=== PATIENT | female | born 1940 | race Caucasian/White ===

== ENCOUNTER → 2019-03-25 14:41 | Outpatient (CLI) | payer MEDICARE, OTHER, SELFPAY ==
--- NOTE | 2019-03-25 14:50 | RAD_ITS ---
STUDY: X-RAY - LUMBAR SPINE REASON FOR EXAM: Female, 78 years old. Low back pain TECHNIQUE: 5 view(s) of the lumbar spine were obtained. COMPARISON: None FINDINGS: Normal lumbar lordosis. There is no substantial scoliosis. There is a normal alignment of the vertebrae. There is generalized demineralization of the vertebral bodies. There are old compression deformities of the T12, L4, and L5 vertebral bodies. There is narrowing of the L5-S1 disc space. The soft tissue structures are unremarkable. RAD/L/S Spine Min 4 Views IMPRESSION: Old compression deformities of T12, L4, and L5. Narrowing of the L5-S1 disc space. There is no evidence of acute fracture, spondylolysis, or spondylolisthesis. Electronically Signed: Jeffrey Briones MD at 18:40 EDT , Service support ,
== END ==
PROVIDERS: Family Provider Family Medicine; PCP Family Medicine; Referring Provider Family Medicine; Visit Provider Family Medicine
DX: M54.9 Dorsalgia, unspecified (principal)
CPT/HCPCS: 72110

== ENCOUNTER → 2019-03-29 13:38 | Outpatient (CLI) | payer MEDICARE, OTHER, SELFPAY ==
--- NOTE | 2019-03-29 13:49 | BD_ITS ---
STUDY: DUAL ENERGY X-RAY ABSORPTIOMETRY / DXA REASON FOR EXAM: Female, 78 years old. The patient is postmenopausal. Loss of height. TECHNIQUE: Bone Mineral Density (BMD) measurements of lumbar spine and bilateral hips were obtained. COMPARISON: None. FINDINGS: Lumbar Spine (L1-L4): g/cm2 (0.927) / T-score (-2.3) / Z-score (-0.5) Findings are suggestive of osteopenia with a high fracture risk. Left Femur Total: g/cm2 (0.768) / T-score (-1.9) / Z-score (-0.1) Left Femoral Neck: g/cm2 (0.681) / T-score (-2.6) / Z-score (-0.6) Right Femur Total: g/cm2 (0.729) / T-score (-2.2) / Z-score (-0.4) Right Femoral Neck: g/cm2 (0.652) / T-score (-2.8) / Z-score (-0.8) BD/Dexa Bone Density Study IMPRESSION: The patient is considered osteoporotic as outlined below according to World Jorge A Organization (WHO) criteria with a high fracture risk. Reference Information: The T-score is the number of standard deviations above or below the standard which is normal for young adults at their peak bone mineral density. The World Health Organization (WHO) interprets the T-scores as follows: Above -1 Normal bone density Between -1 and -2.5 Osteopenia Equal to / or below -2.5 Osteoporosis As a practical clinical guideline, osteopenia may be graded as follows: Mild -1 through -1.5 Moderate -1.6 through -2.0 Severe -2.1 through -2.4 The Z-score is the number of standard deviations above or below age-matched controls. A Z-score of less than -1.5 would be considered abnormal. References: 1. NIH Osteoporosis and Related Bone Diseases http://www.osteo.org 2. International Society for Clinical Densitometry http://www.iscd.org 3. National Osteoporosis Foundation http://www.nof.org Electronically Signed: Dillan Patricia, at 8:54 EDT , Service support ,
== END ==
PROVIDERS: Family Provider Family Medicine; PCP Family Medicine; Referring Provider Family Medicine; Visit Provider Family Medicine
DX: M81.0 Age-related osteoporosis without current pathological fracture (principal)
CPT/HCPCS: 77080

== ENCOUNTER 2019-04-26 14:00 | Outpatient (RCR) | payer MEDICARE, OTHER, SELFPAY ==
--- NOTE | 2019-04-06 12:11 | HP.PTEVAL_ITS ---
Patient's Visit Information REBECCA HINTON is a 78 year old F referred to Physical Therapy by Azalea Rueda MD with a diagnosis of DORSALGIA. Date of Evaluation: 04/06/19 Physical Therapist: Santosh Tineo PT, Cert MDT, OCS - Visit Plan Frequency: 2x /Week Duration: 4 Weeks Plan: H/O OSTEOPENIA/OSTEOPOROSIS. PT INTERVETIONS DLS ABD/BACK,HIP STRENGTHENING,POSTURAL EX'S - Subjective Findings: This 78 y/o female presnets to physical therapy with lumbar pain.Patient has h/o osteopenia and osteoprosis which patient recently had bone density test. Also,had x-rays showed compression deformitys T12 ,L4 AND L5. Jomar ventura developed lumbar pain 6wks ago carryng a bed ,next day had back. Initally seen chiropractor . Patient see DR and recommended. Aggravating liftig,bending, standing ,extended sitting. Aleviating factors walking,rest. Patient denies parathesia/tingling. Bowel/bladder -. Coughing/sneezing -. Patient pain affects houisework and ADL'S. Patient pain affects QOL. VOCATION: retired. SOCIAL: - Pain Bilateral Back Pain Intensity (Out of 10): 5 Pain Intensity Range: 10 Comment: worst - Objective POSTURE: mild foward posture. GAIT:ambulates with fild foward posture reciprocal pattern. NEURO:reflexes L3-4,L4-5,L5-S1 2/3,denies parathesai/tingling. PALAPTION: unrmarkable. MMT:quads/hams 4/5,hip flexion 4- /5 ,ankle 4/5. LUMBAR ROM: flexion min loss,extension min/mod loss ,side glides min loss. SYMMRIES: align - Special Tests L/S Slump test left side: Negative L/S Slump test right side: Negative L/S Left Straight Leg Raise: Negative L/S Right Straight Leg Raise: Negative - Goals Goal 1:: Independant with HEP Goal Time Frame: 4-6 Weeks Goal 2:: Decrease lumbar pain by 50% or > to improve function. Goal Time Frame: 4-6 Weeks Goal 3:: Pateint to improve back owestry score by 5 points > to improve QOL. Goal Time Frame: 4-6 Weeks Goal 4:: Pateint improve posture for ADL'S Goal Time Frame: 4-6 Weeks Goal 5:: Patient improve lumbar ROM for function of recovery. Goal Time Frame: 4-6 Weeks - Rehabilitation Potential Physical Therapy Diagnosis: This patient has symmtrical lumbar pain with h/o osteopenia /osteoprosis with pain L-S region. impairs function and ADLS with decrease core strength. Rehabilitation Potential: Good - Anticipated Interventions Patient/Client Instruction: Educate patient on: Condition, Plan of Care For the Purpose of:: To decrease pain, To increase ROM, To improve muscle performance and motor function, To improve ability to perform ADL's, To increase tolerance to activity/condition/position, To decrease level of supervision to perform tasks, To improve gait and locomotor functions, To improve health of tissue, To decrease soft tissue restriction, To increase flexibility/ROM, To improve ability to perform tasks related to life management Therapeutic Exercise to Include: Strength training, Postural training, Flexibilty training, Active ROM, Dynamic Lumbar Stabilization For the Purpose of:: To decrease pain, To increase ROM, To improve muscle performance and motor function, To improve ability to perform ADL's, To increase tolerance to activity/condition/position, To improve ability of physical actions for home/community/work/leisure, To improve health of tissue, To decrease soft tissue restriction, To increase flexibility/ROM, To improve ability to perform tasks related to life management TENS: Yes IF ES: Yes Cryotherapy (ice pack, ice massage): Yes Thermo therapy (hot pack): Yes Ultrasound (thermal/non thermal): Yes For the Purpose of:: To decrease pain, To increase ROM, To improve health of tissue, To decrease soft tissue restriction Thank you for the opportunity to evaluate your patient. For Medicare and Medicare HMO plans, please review the plan of care and approve it. It will need to be FAXED BACK to us at [phone] for Medicare purposes. For Medicare only, by signing this I certify the plan of care. Please let me know if there are questions or concerns regarding this plan of care. Physician Signature: Date:
--- NOTE | 2019-06-09 15:35 | HP.PTDCNRP_ITS ---
HP - Discharge Summary (1) - Patient Information REBECCA HINTON was seen in my office for initial evaluation on 04/06/19. The following Plan of Care was established for this patient: Initial Frequency: 2x /Week Initial Duration: 4 Weeks - Anticipated Interventions Patient/Client Instruction: Educate patient on: Condition, Plan of Care For the Purpose of:: To decrease pain, To increase ROM, To improve muscle pe rformance and motor function, To improve ability to perform ADL's, To increase tolerance to activity/condition/position, To decrease level of supervision to perform tasks, To improve gait and locomotor functions, To improve health of tissue, To decrease soft tissue restriction, To increase flexibility/ROM, To improve ability to perform tasks related to life management Therapeutic Exercise to Include: Strength training, Postural training, Flexibilty training, Active ROM, Dynamic Lumbar Stabilization For the Purpose of:: To decrease pain, To increase ROM, To improve muscle performance and motor function, To improve ability to perform ADL's, To increase tolerance to activity/condition/position, To improve ability of physical actions for home/community/work/leisure, To improve health of tissue, To decrease soft tissue restriction, To increase flexibility/ROM, To improve ability to perform tasks related to life management TENS: Yes IF ES: Yes Cryotherapy (ice pack, ice massage): Yes Thermo therapy (hot pack): Yes Ultrasound (thermal/non thermal): Yes For the Purpose of:: To decrease pain, To increase ROM, To improve health of tissue, To decrease soft tissue restriction This patient was last seen in our office 04/26/19. Pertinent comments regarding their Physical therapy will appear below: Patient seen for physical therapy for dorasalgia with tx focusing on DLS ,POSTURAL EX'S and HEP. Thus is d/c . At this point I will be discontinuing this patient from physical therapy. I would be happy to see this patient again in the future if found appropriate by the physician. Thank you! Santosh Tineo, PT, Cert MDT, OCS
== END 2019-04-26 19:00 | disposition home or self-care (01) ==
LOC: PT 14:00
PROVIDERS: Family Provider Family Medicine; PCP Family Medicine; Referring Provider Family Medicine; Visit Provider Family Medicine
DX: M54.9 Dorsalgia, unspecified (principal)
CPT/HCPCS: 97110; 97161

== ENCOUNTER → 2020-12-04 08:54 | Outpatient (CLI) | payer MEDICARE, OTHER, SELFPAY ==
[2020-12-04 09:57] LABS: Absolute Lymphocyte Count 2.18 X10^3/uL (0.83-4.51); Absolute Neutrophil Count 2.9 X10^3/uL (2.0-7.7); Basophil# 0.07 X10^3/uL; Basophil% 1.2 % (0-1); Eosinophil# 0.14 X10^3/uL; Eosinophils% 2.4 % (0-5); Hematocrit 47.8 % (37-47); Lymphocyte # 2.18 X10^3/ul (0.83-4.51); Lymphocyte % 37.7 % (19-41); Mean Corp Hgb Conc 31.4 g/dL (32-36); Mean Corpuscular Hgb 30.2 pg (27.0-32.0); Mean Corpuscular Volume 96.2 fL (81-99); Monocyte# 0.51 X10^3/uL; Monocyte% 8.8 % (0-10); NRBC Flagged by Analyzer 0 % (0-5); Neutrophil # 2.87 X10^3/uL (2.7-7.7); Neutrophil % 49.7 % (47-70); Platelet Count 291 K/mm3 (150-450); RBC Distribution Width CV 13.2 % (11.6-14.6); RBC Distribution Width SD 47.4 fl (35.1-43.9); Red Blood Count 4.97 M/mm3 (4.2-5.4); White Blood Count 5.8 K/mm3 (4.4-11.0)
[2020-12-04 10:25] LABS: ALB/GLOB Ratio 0.9 RATIO (0.9-2.4); AST(SGOT) 16 U/L (15-37); Alanine Aminotransfer ALT/SGPT 27 U/L (13-56); Albumin, Serum 3.5 g/dL (3.2-5.0); Alkaline Phosphatase 62 U/L (45-117); Anion Gap 4 (5-15); BUN 17 mg/dL (7-18); BUN/Creat Ratio 25.2 RATIO (10-20); Calcium,Total 8.7 mg/dL (8.5-10.1); Chloride 106 mmol/L (98-107); Cholesterol 187 mg/dL (200); Creatinine, Serum 0.67 mg/dL (0.55-1.02); EST Glomerular Filtration Rate 90 mL/min (>60); Est Glom Filt Rate - Afr Amer 109 mL/min (>60); Globulin 3.7 g/dL (2.2-4.2); Glucose 91 mg/dL (74-106); High Density Lipoprotein 68 mg/dL; Potassium 4.3 mmol/L (3.5-5.1); Protein, Total 7.2 g/dL (6.4-8.2); Sodium Level 139 mmol/L (136-145); Triglycerides 99 mg/dL; Very Low Density Lipoprotein 20 mg/dL (5-40)
[2020-12-04 10:31] LABS: Vitamin D,25 Hydroxy 31.4 ng/mL
== END ==
PROVIDERS: PCP Family Medicine; Referring Provider Family Medicine; Visit Provider Family Medicine
DX: Z00.01 Encounter for general adult medical examination with abnormal findings (principal); M81.0 Age-related osteoporosis without current pathological fracture
CPT/HCPCS: 36415; 80053; 80061; 82306; 85025

== ENCOUNTER → 2021-05-03 14:32 | Outpatient (CLI) | payer MEDICARE, OTHER, SELFPAY ==
[2021-05-03 15:55] LABS: Anion Gap 6 (5-15); BUN 18 mg/dL (7-18); Calcium,Total 9.7 mg/dL (8.5-10.1); Chloride 107 mmol/L (98-107); Creatinine, Serum 0.72 mg/dL (0.55-1.02); EST Glomerular Filtration Rate 83 mL/min (>60); Est Glom Filt Rate - Afr Amer 100 mL/min (>60); Glucose 109 mg/dL (74-106); Potassium 4.1 mmol/L (3.5-5.1); Sodium Level 141 mmol/L (136-145)
[2021-05-03 16:06] LABS: Vitamin D,25 Hydroxy 32.1 ng/mL
[2021-05-06 17:07] LABS: Endomysial Antibody IgA Negative (Negative)
[2021-05-06 18:06] LABS: Deamidated Gliadin IgA 4 units (0-19); Deamidated Gliadin IgG 2 units (0-19); Immunoglobulin A 319 mg/dL (64-422); t-Transglutaminase IgA <2 U/mL (0-3)
== END ==
PROVIDERS: Internal Medicine Gastroenterology; PCP Family Medicine; Referring Provider Internal Medicine Endocrinology, Diabetes & Metabolism; Visit Provider Internal Medicine Endocrinology, Diabetes & Metabolism
DX: E55.9 Vitamin D deficiency, unspecified (principal); M81.0 Age-related osteoporosis without current pathological fracture
CPT/HCPCS: 36415; 80048; 82306; 82784; 83516; 86255

== ENCOUNTER → 2021-05-17 12:49 | Outpatient (CLI) | payer MEDICARE, OTHER, SELFPAY ==
[2021-05-17 12:53] VITALS: BP 108/53; PULSE 93; RESP 16; TEMP 36.4; O2SAT 98; BMI 27.4
[2021-05-17] MEDS: 0.9% NaCl Peripheral Flush Adult/Peds IV (13:05)
[2021-05-17] MEDS: Zoledronic Acid 5 MG 100 ML 300 MG IV (13:09)
[2021-05-17] MEDS: 0.9% NaCl IVPB Med Flush (250 mL) 15 ML IV (13:09)
[2021-05-17 13:39] VITALS: BP 112/66; PULSE 78; RESP 16; TEMP 36.5; O2SAT 100
== END ==
PROVIDERS: PCP Family Medicine; Referring Provider Internal Medicine Endocrinology, Diabetes & Metabolism; Visit Provider Internal Medicine Endocrinology, Diabetes & Metabolism
DX: M81.0 Age-related osteoporosis without current pathological fracture (principal)
CPT/HCPCS: 96365; J7050; A4216; J3489

== ENCOUNTER → 2022-03-20 | Outpatient (CLI) | payer MEDICARE, SELFPAY ==
--- NOTE | 2022-03-20 12:41 | CT_ITS ---
STUDY: CT SCAN OF LOWER EXTREMITY LEFT REASON FOR EXAM: Female, 81 years old. PAIN RADIATION DOSAGE (If Supplied By Facility): CTDIvol = ( 20.10 ) mGy, DLP = ( 1135.33 ) mGycm. Individualized dose optimization techniques were used for this CT.? TECHNIQUE: Multiple axial tomographic images of the left lower extremity were obtained. Coronal and sagittal reconstruction was obtained as well.MALIA protocol. COMPARISON: None. FINDINGS: Imaging of the left hip joint was obtained. There is a mild degree of the joint space narrowing. No evidence of fracture or dislocation. Imaging of the knee joint was obtained. Marked degree of joint space narrowing with degenerative spur formation along the lateral compartment of the knee joint. Mild degree of joint space narrowing and degenerative spur formation along the medial compartment. Large joint effusion. Imaging of the ankle joint was obtained. There is evidence of calcaneal spurs. CT/Extremity Lower without Contra IMPRESSION: Moderate degree of joint space narrowing of the lateral compartment of knee joint as well as mild degree of joint space narrowing involving the medial compartment of the knee joint. Large joint effusion. Electronically Signed: Dillan Patricia MD at 13:05 EDT ,
== END | disposition home or self-care (01) ==
LOC: CT 12:38
PROVIDERS: PCP Family Medicine; Referring Provider Physician Assistant; Visit Provider Physician Assistant
DX: M17.12 Unilateral primary osteoarthritis, left knee (principal); M21.062 Valgus deformity, not elsewhere classified, left knee
CPT/HCPCS: 73700

== ENCOUNTER 2022-05-05 14:20 | Observation (INO) | payer MEDICARE, SELFPAY ==
--- NOTE | 2022-04-21 14:41 | EKG12_ITS ---
Test Reason : PRE OP Blood Pressure : / mmHG Vent. Rate : 086 BPM Atrial Rate : 086 BPM P-R Int : 140 ms QRS Dur : 066 ms QT Int : 356 ms P-R-T Axes : -04 -32 010 degrees QTc Int : 426 ms Sinus rhythm with Premature atrial complexes Left axis deviation Low voltage QRS Inferior infarct , age undetermined , cannot be excluded Poor R wave progression Abnormal ECG Confirmed by SHRUTHI MURRIETA, TIAGO ([id number]), sound editor ERNA ALMARAZ ([id number]) on 04/22/2022 9:22:33 AM Referred By: SAM Confirmed By:TIAGO HAWKINS MD
--- NOTE | 2022-04-21 14:42 | RAD_ITS ---
STUDY: X-RAY CHEST REASON FOR EXAM: Female, 81 years old. PRE-OP -- HAS EKG WELL TECHNIQUE: PA and lateral views of the chest. COMPARISON: None. FINDINGS: The lungs are clear and expanded. There is no demonstrated pleural abnormality. Normal size heart. Normal mediastinum and najma. Normal visualized pulmonary arteries. Normal visualized aortic arch and descending thoracic aorta. Normal visualized thoracic spine. Normal visualized ribs, clavicles, and shoulders. There is no demonstrated abnormality of the visualized soft tissue structures of the upper abdomen. RAD/Chest PA and Lateral IMPRESSION: Normal x-ray examination of the chest. Electronically Signed: Vasiliy Mendoza MD at 17:20 EDT ,
[2022-04-21 15:33] LABS: Absolute Lymphocyte Count 2.57 X10^3/uL (0.83-4.51); Absolute Neutrophil Count 4.7 X10^3/uL (2.0-7.7); Basophil# 0.05 X10^3/uL; Basophil% 0.6 % (0-1); Eosinophil# 0.11 X10^3/uL; Eosinophils% 1.3 % (0-5); Hematocrit 48.9 % (37-47); Hemoglobin 15.9 g/dL (12.0-15.0); Lymphocyte # 2.57 X10^3/ul (0.83-4.51); Lymphocyte % 31.1 % (19-41); Mean Corp Hgb Conc 32.5 g/dL (32-36); Mean Corpuscular Hgb 30.3 pg (27.0-32.0); Mean Corpuscular Volume 93.1 fL (81-99); Mean Platelet Vol. 9.2 fl (6.2-12.0); Monocyte# 0.85 X10^3/uL; Monocyte% 10.3 % (0-10); NRBC Flagged by Analyzer 0 % (0-5); Neutrophil # 4.65 X10^3/uL (2.7-7.7); Neutrophil % 56.3 % (47-70); Platelet Count 310 K/mm3 (150-450); RBC Distribution Width CV 13.2 % (11.6-14.6); RBC Distribution Width SD 44.8 fl (35.1-43.9); Red Blood Count 5.25 M/mm3 (4.2-5.4); White Blood Count 8.3 K/mm3 (4.4-11.0)
[2022-04-21 16:26] LABS: Anion Gap 10 (5-15); BUN 15 mg/dL (7-18); BUN/Creat Ratio 20.1 RATIO (10-20); Calcium,Total 9.4 mg/dL (8.5-10.1); Chloride 106 mmol/L (98-107); Creatinine, Serum 0.74 mg/dL (0.55-1.02); EST Glomerular Filtration Rate 80 mL/min (>60); Est Glom Filt Rate - Afr Amer 96 mL/min (>60); Glucose 100 mg/dL (74-106); Potassium 4.6 mmol/L (3.5-5.1); Sodium Level 141 mmol/L (136-145)
--- NOTE | 2022-04-28 12:57 | CASEMGMT ---
RN ALEKSEY Assessment: TC to pt for initial transition planning/care coordination assessment. RN ALEKSEY introduced self and role at [facility], pt voices understanding and consents to assessment. Care providers, pharmacy, and demographics verified/updated. Admitting Dx: Lt Total Knee Robotic PCP:Marybeth Specialists:abisai Dangelo; collin Garcia; Friend, GI Preferred Pharmacy: [facility] Insurance: [employer] [facility] Prescription Benefit: yes LW/HPOA: Pt states she has a LW/DPOA and her DPOA is her son Naeem Bailon. She is aware this is not on file at [facility] and she may bring in on day of surgery to be scanned into her chart. LNOK: Emmy Bailon, dtr; Naeem Bailon, son Living Arrangements: Pt lives alone in a single story house with 2 steps to enter with a grab bar. Pt reports she is I in ADL's and denies concerns at home. Transportation: Pt drives self and denies concerns with transportation. Pt dil will transport pt post surgery. DME/HHC/SNF: Pt has a FWW at home. She currently does not use AD. Pt also has grab bars in the bathroom. Pt has had HHC in the past but is unsure of the name of the agency, it was not when she lived in [place]. Pt denies SNF stays. Pt states no concerns with going home at time of dc. Pt has outpt therapy set up at [facility] for 05/01. Pt states her dil will assist her after surgery and her friend who is a retired RN will be staying with her. Pt states no further concerns/needs. CM to follow. Advised pt to ask CM if any further question/concerns/needs arise, voices understanding. Pt Goal: Home with outpt therapy already set up Plan: Home with outpt therapy set up
[2022-05-05] VITALS (12 sets, daily range): BP systolic 96–144; BP diastolic 58–82; PULSE 72–106; RESP 16–18; TEMP 36–36.6; O2SAT 93–100; BMI 26.6; BMI 25.6
[2022-05-05] MEDS: Lactated Ringers 1,000 ML 999 ML IV ×2 (08:09→12:20)
[2022-05-05] MEDS: Magnesium 1 GM over 15 mins IV (08:10)
[2022-05-05] MEDS: Celecoxib 200 MG Capsule 400 MG PO (08:11)
[2022-05-05] MEDS: Gabapentin 600 MG Tablet PO (08:11)
[2022-05-05 09:00] LABS: Bedside Glucose 88 mg/dL (74-106)
[2022-05-05] MEDS: Lactated Ringers 1,000 ML 125 ML IV ×2 (09:55→14:27)
[2022-05-05] MEDS: Lactated Ringers 1,000 ML 75 ML IV (09:55)
--- NOTE | 2022-05-05 09:55 | KNEE_PTH ---
PATIENT: REBECCA HINTON LOC: [facility]3 U#:[id number] AGE/SX: 81/F ROOM: MS305 RE05/05/[address]: Dr. Rojelio Dangelo DO : 1940 BED: 1 DIS: 05/06/2022 SPEC #: [id number] RECD: 05/05/22 14:44 STATUS: RADHA TAVAREZRicarda #: [id number] NELA: 05/05/22 09:[address]: Rojelio Dangelo DEPT: SURGICAL PATHOLOGY RECD BY: Di Laws ENTERED: 05/06/22 08:52 SP TYPE: TOTAL KNEE OTHR DR: Dr. Azalea Rueda MD Tissues: Knee, NOS Procedures: Decalcification bone/plaque Surgery Specimen Level IV HEADER OPERATION: ERAS, total knee replacement robotic arm assist PRE-OP DIAGNOSIS: Osteoarthritis grade IV, left knee TISSUE SUBMITTED: Left femoral and tibial bone MICROSCOPIC DIAGNOSIS Left femoral and tibial bone, total knee replacement/resection: Pieces of bone with degenerative osteoarthritic changes. Fibroadipose tissue, fibroconnective tissue and reactive synovial tissue. FERNY:aileen 05/09/2022 MICROSCOPIC DESCRIPTION Slides are reviewed. GROSS DESCRIPTION Received is one container designated left femoral and tibial bone. The specimen consists of multiple fragments of rea-yellow bone measuring in aggregate 12 x 8 x 3 cm. Also in the specimen container are multiple fragments of yellow-white soft tissue measuring in aggregate 9 x 7 x 3 cm. A number of bony fragments contain articular surfaces consistent with tibial plateau and femoral condyle and displaying prominent osteophyte formation, eburnation, and bone erosion. [employer] School Program Teacher sections are submitted in two cassettes as follows: 1 - soft tissue, 2 - bone after decalcification. / FERNY:aileen 05/06/2022 TC:5 [facility]: [id number], [id number]
[2022-05-05] MEDS: Cefazolin 2 GM in 0.9% Normal Saline 100 ML IV (10:22)
[2022-05-05] MEDS: TXA 1000mg in NS100 100ml (IVPB at Incision) 660 MG IV (10:41)
[2022-05-05] MEDS: TXA 1000mg in NS100 100ml (IVPB at Closure) 660 MG IV (11:46)
--- NOTE | 2022-05-05 11:48 | OP.PCM_ITS ---
Report of Operation Date of Procedure: 05/05/22 Pre-Operative Diagnosis: OA left knee Post-Operative Diagnosis: same Surgery/Procedure Performed:: Left TKR Description of Surgical Findings:: Report of Operation Date of Procedure: 05/05/2022 Preoperative Diagnosis: [ left ] knee primary osteoarthritis Postoperative Diagnosis: [left ] knee primary osteoarthritis Operation: Robotic Assisted Knee Total Arthroplasty, [left ] knee Surgeon: Dr Rojelio Dangelo DO Shop Superintendent: Denita Fountain PA-C Anesthesia: general Anesthesiologist: Kiran Dial M.D. Findings: Stable knee with good patella tracking Specimen(s): Bony cuts Complications: No intraoperative complications Estimated Blood Loss: 30 cc IV Fluids: 1000 cc crystalloid Implants Used: 1. [employer] press-fit CR size 3 femur 2. [employer] size 4 tibia 3. 32 mm patella 4. 11 mm CS polyethylene Brief History Operative Indications: [ (81 y/o female) ] with history of [ left ] knee osteoarthrosis with radiographic findings with loss of joint space, osteophyte formation and subchondral sclerosis. Failed conservative measures as mentioned in the H&P. Discussion of total knee arthroplasty as well as risk and benefits were discussed with the patient including but not limited to blood loss, DVTs, PEs, neurovascular damage, general risk of anesthesia including loss of life, and stiffness or instability were also discussed with the patient. Patient demonstrated understanding and was able to sign informed consent. Procedure: On the date of procedure, patient's [ left ] lower extremity was marked in the preoperative area. The patient was then taken back to the operating room where that patient was placed on the table in the supine position. All bony prominences were identified and well-padded. Anesthesia assumed control of the C-spine and airway throughout the remainder of the procedure. A tourniquet was placed on the [left ] upper thigh and the leg was prepped in a sterile fashion. The surgeon then scrubbed at this time. Upon reentering the room, the [left ] lower extremity was draped in a standard orthopedic fashion. A timeout was then called and everyone agreed upon the side, the site, the procedure to be performed, patient's identity and antibiotics given. Esmarch bandage was used to exsanguinate the extremity and the tourniquet was placed up to 250 mmHg with the knee in flexion. A midline skin incision was made and a sharp dissection was taken down through skin, subcutaneous tissue and fat. The standard medial parapatellar incision was made and the patella was subluxed laterally. An appropriate deep MCL release was done and the fat pad was resected. Our attention was then directed to the patella. The patella was everted and a flat resection was made. The knee was then flexed up and 2 femoral pins were placed inside the incision and 2 tibial pins were placed outside the incision in the medial tibia bicortically. Once this was completed, the 2 checkpoints in the femur and tibia were placed. Knee was then flexed up and the bony landmarks were registered. Once the was completed, the knee taken through range of motion and manually stressed allowing us to plan for an appropriate tibial cut. The robotic arm was brought into the field sterilely and checkpoint and saw were registered. Based on the patient's deformity, the tibial cut was made in [ 2 degrees valgus ]. At this time, the tensioner was then placed in the joint and ligament tension was checked at 90 degrees and full extension. Based on the patient's ligamentous tension, appropriate adjustments were made to the operative plan and ligament releases were done. Once we were happy with our operative plan with balanced flexion and extension gaps, our attention was directed to the femur. The robot was brought into the field sterilely and registered. Posterior condylar cuts, anterior chamfer cuts and anterior cuts were appropriately made for a [size 3 ] femur. When these were completed, the saws were switched out in the distal femoral and posterior chamfer cuts were made. Protecting the soft tissue throughout this time. A [ size 4 ] base plate was selected. The knee was flexed to 90 degrees and soft tissues and posterior osteophytes were removed from the joint. 40 cc of the periarticular injection was injected into the posterior medial corner of the joint. The appropriate trials were then placed on the femur and tibia. A trial polyethylene was trialed to ensure proper balancing and stability of the knee. The appropriate tibial internal rotation was then marked with a bovie. Our attention was then directed to the patella. The lug holes were drilled and the patella trial was placed. Patellar tracking was checked and deemed appropriate. Once we were happy, lug holes were drilled for the femur and trial components were removed. The tibia was subluxed and pinned into place and the keel was punched and drilled appropriately. Final components were verified and opened. The wound was copiously irrigated with normal saline. The components were impacted into place with the tibia, femur and finally the patella. The trial poly component was placed and the knee was placed in full extension. The tracking, alignment and balance were verified and a [ 11 mm CS ] polyethylene component was placed. Once the final components were placed an Irrisept lavage was performed and the wound was copiously irrigated with normal saline solution and the periarticular injection was given. the wound was closed in a layer-hernandez fashion using #1 vicryl interrupted sutures for the arthrotomy, 2-0 interrupted vicryl suture for the subcuticular layer and desmond for final skin closure. A sterile compressive dressing was then placed. The patient was then awakened from anesthesia, transferred to the rgause and transferred to the PACU for recovery. My physician assistant associate full professor was a vital part of this case. He was important in appropriate retraction during the case, and protection of soft tissues during bony cuts. His intimate knowledge of the case and my steps aided in safe and expedient completion of the procedure as well as appropriate position of the leg during the case. He was also vital in assisting with closure under my direct supervision. Due to the complexity of this case, robotic arm was used to assist in the surgery to improve accuracy and clinical outcomes. Post-op Plan: DVT ppx; ASA 81 mg BID, thigh high compression stockings Follow up: in office in 2 weeks for wound check PT: to start POD #0 at hospital, outpatient PT should be arranged. Preoperative antibiotic: Ancef 2 grams IV Rojelio Dangelo DO Surgeon: Rojelio Dangelo medical doctor md: Denita Fountain Type of Anesthesia: General Anesthesiologist: Kiran Dial Estimated Blood Loss (mL): 30 cc Fluids Replaced: 1000 cc crystalloid Admit VTE Documentation VTE Present on Admission: No VTE Mechan Device Prophylaxis: SCD's and Thigh High BEVERLY Hose VTE Pharm Prophylaxis ordered?: Yes
--- NOTE | 2022-05-05 13:00 | RAD_ITS ---
STUDY: X-RAY - LEFT KNEE REASON FOR EXAM: Female, 81 years old. Post op -- AP and Lateral xray of operative knee in PACU TECHNIQUE: 2 view(s) of the knee. COMPARISON: None. FINDINGS: Normal visualized distal femur. Normal visualized proximal tibia and fibula. Normal proximal tibiofibular articulation. The patient is status post total knee replacement. There is good alignment. Postoperative soft tissue changes. RAD/Knee 1 or 2 Views IMPRESSION: Status post total knee replacement. There is good alignment. Postoperative soft tissue changes. Electronically Signed: Dillan Patricia MD at 13:38 EDT ,
[2022-05-05] MEDS: Acetaminophen 500 MG Tablet 1000 MG PO ×2 (14:27→21:53)
--- NOTE | 2022-05-05 17:21 | NURSING ---
Pt had a emesis after eating dinner. States she feels better. Denies wanting antiemetic. Pt provided saltines and gingerale. States she will call nurse if she has any further nausea.
[2022-05-05] MEDS: Aspirin 81 MG TAB.CHEW PO (17:56)
[2022-05-05] MEDS: Cefazolin 1 GM/50 ML BAG IV (17:56)
[2022-05-05] MEDS: Senna/Docusate Sodium 1 Tablet 2 TABLET PO (21:53)
[2022-05-05] MEDS: Lactated Ringers 1,000 ML 15 ML IV (21:55)
[2022-05-06] MEDS: 0.9% NaCl Peripheral Flush Adult/Peds IV (02:11)
[2022-05-06] MEDS: Cefazolin 1 GM/50 ML BAG IV (02:11)
[2022-05-06 04:59] LABS: Hemoglobin 13.1 g/dL (12.0-15.0); Mean Corp Hgb Conc 32.8 g/dL (32-36); Mean Corpuscular Hgb 30.3 pg (27.0-32.0); Mean Corpuscular Volume 92.6 fL (81-99); Mean Platelet Vol. 8.9 fl (6.2-12.0); Platelet Count 327 K/mm3 (150-450); RBC Distribution Width CV 13.4 % (11.6-14.6); Red Blood Count 4.32 M/mm3 (4.2-5.4); White Blood Count 10.9 K/mm3 (4.4-11.0)
[2022-05-06 05:33] LABS: Anion Gap 7 (5-15); BUN 7 mg/dL (7-18); BUN/Creat Ratio 11.1 RATIO (10-20); Calcium,Total 8.2 mg/dL (8.5-10.1); Chloride 107 mmol/L (98-107); Creatinine, Serum 0.63 mg/dL (0.55-1.02); EST Glomerular Filtration Rate 97 mL/min (>60); Est Glom Filt Rate - Afr Amer 117 mL/min (>60); Estimated Creatinine Clearance 36.08 ml/min; Glucose 89 mg/dL (74-106); Potassium 3.7 mmol/L (3.5-5.1); Sodium Level 141 mmol/L (136-145)
[2022-05-06] MEDS: Acetaminophen 500 MG Tablet 1000 MG PO ×2 (06:01→13:55)
--- NOTE | 2022-05-06 08:10 | PCM.PN.ORT ---
Subjective Subjective Patient is s/p left sided total knee arthroplasty with Dr. Dangelo. Patient resting comfortably in bed. Rates pain 0/ 10 at rest. With movement 5 /10. States taking Tylenol and oxycodone as needed and ice help to relieve pain. Patient has been up with therapy. Walking with the assit of a walker. Afebrile, no chest pain, shortness of breath, negative calf pain/ erythema, and no other signs of DVT. Objective Data Objective Data Vital Signs: Vital Signs Temp Pulse Resp BP Pulse Ox O2 Del Method O2 Flow Rate 97.5 F L 89 18 118/69 100 Room Air 7 05/05/22 23:19 05/05/22 23:19 05/05/22 23:19 05/05/22 23:19 05/05/22 23:19 05/05/22 23:19 05/05/22 13:54 Oxygen Flow Rate (L/min) 7 Oxygen Delivery Method Room Air Weight: 63.503 kg Body Mass Index (BMI) 25.6 Intake & Output: Intake and Output for Last 24 Hours 05/04/22 05/05/22 05/06/22 23:59 23:59 23:59 Intake Total 5498 / 5498 50 / 50 Output Total 300 / 1575 2125 / 2125 Balance 5198 / 3923 -207 / -2074 Lab / Micro Data Result Diagrams: 05/06/22 04:10 05/06/22 04:10 Labs: Laboratory Results - last 24 hr 05/05/22 08:28: POC Glucose 88 05/06/22 04:10: WBC 10.9, RBC 4.32, Hgb 13.1, Hct 40.0, MCV 92.6, MCH 30.3, MCHC 32.8, RDW Std Deviation 46.0 H, RDW Coeff of Eleonora 13.4, Plt Count 327, MPV 8.9 05/06/22 04:10: Sodium 141, Potassium 3.7, Chloride 107, Carbon Dioxide 27.0, Anion Gap 7, BUN 7, Creatinine 0.63, Estim Creat Clear Calc 36.08, Est GFR (MDRD) Af Amer 117, Est GFR (MDRD) Non-Af 97, BUN/Creatinine Ratio 11.1, Glucose 89, Calcium 8.2 L Micro: Microbiology 04/21/22 14:32 Swab (Method) Nasal Screen MRSA/MSSA - Final Radiography Diagnostic Testing: Radiology Impression Knee X-Ray 05/05/22 13:00 IMPRESSION: Status post total knee replacement. There is good alignment. Postoperative soft tissue changes. Electronically Signed: Dillan Patricia MD at 13:38 EDT , Physical Exam Narrative Patient resting comfortably in bed No signs of acute distress Satting well on room air Left lower extremity: Limb is warm to touch, Sensation intact throughout entire lower extremity, including saphenous, sural, superficial and deep peroneal, and tibial distribution. DP/PT pulses bounding. Dorsi and plantar flexion strength 5/5 Dressing : distal pin sites dressing saturated. changed. and stable now. midline incision, there is an area in the middle portion with drainage. stable. no new dressing changes. Calf nontender to palpation, no erythema, no edema. Negative Homans Assessment & Plan Assessment/Plan (1) Status post total left knee replacement: PLAN: Status post left total knee arthroplasty 05/05/2022 Dr. Dangelo 1. Will continue PT today. Weightbearing as tolerated 2. plan for discharge this afternoon following PT 3. Patient will follow up for post op appointment in 2 weeks. As previously scheduled 4. Patient has outpatient PT appointment in 2 days 5. WBC 10.9 no acute reactive leukocytosis 6. H/H 13.1/40.0: no post operavtive anemia 7. DVT prophylaxis : Aspirin 1 mg twice daily x4 weeks 8. Pain control: patient instructed to take tylenol 500mg 2 tablets TID. and oxycodone 1-2 tablets every 4-6 hours only as needed for pain control.
[2022-05-06 08:16] VITALS: O2SAT 97
[2022-05-06 08:21] VITALS: O2SAT 94
[2022-05-06] MEDS: Aspirin 81 MG TAB.CHEW PO (08:58)
[2022-05-06] MEDS: Multivitamins,Therapeutic Tablet 1 TABLET PO (08:58)
[2022-05-06] MEDS: Calcium Carb/Vitamin D 1 TABLET Tablet 2 TABLET PO (08:59)
--- NOTE | 2022-05-06 09:01 | CASEMGMT ---
RN CM in to pt room, pt sitting up in chair. Pt has outpt therapy [facility] for 05/08 at [facility] (corrected from prior note). Pt has a retired RN who is also staying with patient. Pt denies any homegoing needs and is ready for dc.
[2022-05-06 09:11] VITALS: BP 113/58; PULSE 92; RESP 16; TEMP 36.8; O2SAT 100
--- NOTE | 2022-05-06 10:52 | PHA.DC.MC ---
Pharmacy Service has performed discharge medication reconciliation and counseling for this patient. 1. ACETAMINOPHEN 1000MG PO Q8 2. ASPIRIN 81MG PO BIDCM 3. OXYCODONE 2.5MG PO Q4H PRN PAIN 4. SENNA/DOCUSATE 2T PO BID The patient's discharge medication list was reviewed for discrepancies and discrepancies were resolved. Home Medications biotin 2,500 mcg capsule 2,500 mcg PO DAILY 12/25/20 calcium citrate-vitamin D3 [Citracal + D Maximum] 2 tab PO DAILY 12/25/20 multivitamin 1 tab PO DAILY 12/25/20 ibuprofen 600 mg tablet 600 mg PO Q8H PRN Pain 04/04/21 Lactobacillus acidophilus 10 billion cell capsule (Probiotic) 10,000 mmu cells PO BID 04/22/22 turmeric 400 mg capsule 400 mg PO BID 04/22/22 acetaminophen 500 mg tablet 1,000 mg PO Q8 #90 tabs 05/06/22 aspirin 81 mg chewable tablet 81 mg PO BIDCM #60 tabs 05/06/22 oxycodone 5 mg tablet 2.5 mg PO Q4H PRN PRN Pain Score 4-10 7 days #60 tabs 05/06/22 sennosides 8.6 mg-docusate sodium 50 mg tablet (Stool Softener-Stimulant Laxative) 2 tab PO BID #20 tabs 05/06/22 The patient was counseled on the following discharge medications and changes in medications for homegoing were reviewed. The Reason for Use, instructions for use, and potential side effects were reviewed for all new medications. The patient's questions regarding all of their medications were answered. The patient was able to verbally demonstrate an understanding of their discharge medications. Patient counseled by pharmacy order entry technicianSebastien.
[2022-05-06 12:59] VITALS: O2SAT 98
[2022-05-06 13:53] VITALS: BP 111/64; PULSE 93; RESP 16; TEMP 37.2; O2SAT 100
== END 2022-05-06 14:55 | disposition home or self-care (01) ==
LOC: SDC 14:42 → MS3 14:42
PROVIDERS: Anesthesiology; Admitting Provider Orthopaedic Surgery; PCP Family Medicine; Referring Provider Orthopaedic Surgery; Visit Provider Orthopaedic Surgery
PROC: 0SRD0JZ Replacement of Left Knee Joint with Synthetic Substitute, Open Approach (ICD-10-PCS; CPT 27447; principal; 2022-05-05 09:25)
DX: M17.12 Unilateral primary osteoarthritis, left knee (principal); Z87.891 Personal history of nicotine dependence; K21.9 Gastro-esophageal reflux disease without esophagitis; Z79.899 Other long term (current) drug therapy; K58.1 Irritable bowel syndrome with constipation
CPT/HCPCS: 27447; S2900; 01402; 64447; 36415; 71046; 73560; 80048; 82962; 83735; 85025; 85027; 87081; 88305; 88311; 93005; 96361; 96365; 96366; 97110; 97162; 97166; 97530; 97535; 99218; C1776; J7120; A4216; G0378; J2405; J3475

== ENCOUNTER 2022-06-25 13:30 | Outpatient (RCR) | payer MEDICARE, SELFPAY ==
--- NOTE | 2022-05-08 13:55 | HP.PTEVAL ---
Patient's Visit Information REBECCA HINTON is a 81 year old F referred to Physical Therapy by Dr. Rojelio Dangelo DO with a diagnosis of L TKA 05/05/22. Date of Evaluation: 05/08/22 Physical Therapist: Grey Rolle, PT, ATC - Visit Plan Frequency: 2-3x /Week Duration: 4-6 Weeks Plan: L knee PROM/mobs, stretching and strengthening, balance and proprio, core strengthening, gait training, stair negotiation, nustep, and HEP - Subjective DOS: 05/05/22. Pt reports she had a L TKA performed at that time. Pt notes she had a chronic Hx of L knee pain prior to this surgery. Pt reports she is still in a lot of pain at this time. Pt reports she had her R knee replaced several years ago and doesnt remember being in this much pain. Pt has 2 steps to enter her house that she must negotiate one at a time. Pt also reports she is having sleep difficutly at this time secondary to pain. Pt denies tingling or numbness at this time. 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 Pt also reports she likes to ski, and would like to be able to do that again one day. 3/10 pain while sitting here at rest, 9/10 pain at worst (sit to stand transfers). Pt lives by herself. - Pain L Knee Pain Intensity (Out of 10): 3 Pain Intensity Range: 9 - Objective Neuro: B LE sensation is WNL to light touch. B achilles reflex= 1/3. Girth at joint line: L knee 43 cm, R knee 34 cm. MMT: L knee ext= 9, flex= 8; R knee flex= 32, ext= 35 #F. ROM: L knee 0-12-80, R knee 0-4-125. Gait: Pt is able to ambulate with use of WW 340' until needing a rest - Balance/Special Test Scores Lower Extremity Functional Score: 27 - Goals Goal 1:: Decrease L knee pain x 50% to aid with sleep Goal Time Frame: 4-6 Weeks Goal 2:: Increase L knee ROM x 30 degrees to aid with restoring a more normalized gait pattern Goal Time Frame: 4-6 Weeks Goal 3:: Increase L knee strength x 15 #F to aid with stair negotiation Goal Time Frame: 4-6 Weeks Goal 4:: Pt will be able to ambulate greater than 1000 feet to aid with community ambulation Goal Time Frame: 4-6 Weeks Goal 5:: I with HEP Goal Time Frame: 4-6 Weeks - Rehabilitation Potential Physical Therapy Diagnosis: Pt has L knee pain, weakness, and limited ROM secondary to L TKA Rehabilitation Potential: Good - Anticipated Interventions Patient/Client Instruction: Educate patient on: Condition, Plan of Care For the Purpose of:: To improve self management Therapeutic Exercise to Include: Strength training, Endurance training, Balance training, Flexibilty training, Gait and locomotor training, Passive ROM, Active ROM, Dynamic Lumbar Stabilization For the Purpose of:: To decrease pain, To increase ROM, To improve muscle performance and motor function Cryotherapy (ice pack, ice massage): Yes For the Purpose of:: To decrease pain Thank you for the opportunity to evaluate your patient. For Medicare and Medicare HMO plans, please review the plan of care and approve it. It will need to be FAXED BACK to us at [phone] for Medicare purposes. For Medicare only, by signing this I certify the plan of care. Please let me know if there are questions or concerns regarding this plan of care. Physician Signature: Date:
--- NOTE | 2022-06-02 12:10 | HP.PTREVAL_ITS ---
Dr. Rojelio Dangelo, DO, It has been my pleasure to treat REBECCA HINTON over the last 8 visits for L TKA 05/05/22. Please see the progress note below for an update on the physical therapy plan of care! Subjective: I walked a lot yesterday and was a little sore last night Objective/Function: L knee pain ranges from 2-9/10. L knee ROM: 0-7-115 degrees. L knee MMT: flex= 21, ext= 27 #F. Pt is able to ambulate 680 feet with no AD. Pt is progressing well toward Rx goals Plan Plan: L knee PROM/mobs, stretching and strengthening, balance and proprio, core strengthening, gait training, stair negotiation, nustep, and HEP Balance/Gait/Functional tests - Balance/Special Test Scores Lower Extremity Functional Score: 38 Goals Goal 1:: Decrease L knee pain x 50% to aid with sleep Goal Time Frame: 4-6 Weeks Goal Progress: Progressing Goal 2:: Increase L knee ROM x 30 degrees to aid with restoring a more nor malized gait pattern Goal Time Frame: 4-6 Weeks Goal Progress: Goal Met Goal 3:: Increase L knee strength x 15 #F to aid with stair negotiation Goal Time Frame: 4-6 Weeks Goal Progress: Progressing Goal 4:: Pt will be able to ambulate greater than 1000 feet to aid with community ambulation Goal Time Frame: 4-6 Weeks Goal Progress: Progressing Goal 5:: I with HEP Goal Time Frame: 4-6 Weeks Goal Progress: Progressing Anticipated Interventions Patient/Client Instruction: Educate patient on: Condition, Plan of Care For the Purpose of:: To improve self management Therapeutic Exercise to Include: Strength training, Endurance training, Balance training, Flexibilty training, Gait and locomotor training, Passive ROM, Active ROM, Dynamic Lumbar Stabilization For the Purpose of:: To decrease pain, To increase ROM, To improve muscle performance and motor function Cryotherapy (ice pack, ice massage): Yes For the Purpose of:: To decrease pain Please do not hesitate to contact me at [phone] by phone or if you have questions or concerns regarding this new plan of care! Sincerely, Grey Rolle, PT, ATC
--- NOTE | 2022-06-25 14:32 | HP.PTDCSUM ---
It has been my pleasure to treat REBECCA HINTON referred by Dr. Rojelio Dangelo DO, with the diagnosis of L TKA 05/05/22 for a total of 13 visit(s). Discharge Date: Please see the following information for a summary of their discharge status. Subjective: I dont have pain today L Knee Pain Intensity (Out of 10): 0 % Improvement: 90 Objective/Function: L knee pain 0/10. L knee ROM: 0-121 degrees. L knee MMT: flex= 32, ext= 36 #F. Pt is I with hep and has achieved all Rx goals. Goal 1:: Decrease L knee pain x 50% to aid with sleep Goal Progress: Goal Met Goal 2:: Increase L knee ROM x 30 degrees to aid with restoring a more normalized gait pattern Goal Progress: Goal Met Goal 3:: Increase L knee strength x 15 #F to aid with stair negotiation Goal Progress: Goal Met Goal 4:: Pt will be able to ambulate greater than 1000 feet to aid with community ambulation Goal Progress: Goal Met Goal 5:: I with HEP Goal Progress: Progressing Plan: Discharge to gym routine If there are questions or concerns regarding this patient's physical therapy, please feel free to call me at [phone]. Thank you for the referral of this patient. Sincerely, Grey Rolle, PT, ATC Balance/Gait/Functional tests - Balance/Special Test Scores Lower Extremity Functional Score: 64
== END 2022-06-25 14:40 | disposition home or self-care (01) ==
LOC: PT 13:30
PROVIDERS: PCP Family Medicine; Referring Provider Orthopaedic Surgery; Visit Provider Orthopaedic Surgery
DX: M17.12 Unilateral primary osteoarthritis, left knee (principal); M21.062 Valgus deformity, not elsewhere classified, left knee
CPT/HCPCS: 97110; 97140; 97161; 97164; 97530

== ENCOUNTER → 2022-08-18 | Outpatient (CLI) | payer MEDICARE, SELFPAY ==
[2022-08-18 12:17] LABS: ALB/GLOB Ratio 0.9 RATIO (0.9-2.4); AST(SGOT) 15 U/L (15-37); Alanine Aminotransfer ALT/SGPT 24 U/L (13-56); Albumin, Serum 3.9 g/dL (3.2-5.0); Alkaline Phosphatase 67 U/L (45-117); Anion Gap 8 (5-15); BUN 19 mg/dL (7-18); BUN/Creat Ratio 22.6 RATIO (10-20); Calcium,Total 9.6 mg/dL (8.5-10.1); Chloride 104 mmol/L (98-107); Creatinine, Serum 0.84 mg/dL (0.55-1.02); EST Glomerular Filtration Rate 69 mL/min (>60); Est Glom Filt Rate - Afr Amer 84 mL/min (>60); Globulin 4.3 g/dL (2.2-4.2); Glucose 105 mg/dL (74-106); Potassium 4.4 mmol/L (3.5-5.1); Protein, Total 8.2 g/dL (6.4-8.2); Sodium Level 140 mmol/L (136-145)
[2022-08-18 12:48] LABS: Vitamin D,25 Hydroxy 41.4 ng/mL
== END | disposition home or self-care (01) ==
LOC: PAVLAB 11:48
PROVIDERS: PCP Family Medicine; Referring Provider Internal Medicine Endocrinology, Diabetes & Metabolism; Visit Provider Internal Medicine Endocrinology, Diabetes & Metabolism
DX: M81.0 Age-related osteoporosis without current pathological fracture (principal); E55.9 Vitamin D deficiency, unspecified
CPT/HCPCS: 36415; 80053; 82306

== ENCOUNTER 2022-08-22 12:44 | Outpatient (CLI) | payer MEDICARE, SELFPAY ==
[2022-08-22 12:53] VITALS: BP 114/69; PULSE 103; RESP 16; TEMP 36.1; O2SAT 97; BMI 24.7
[2022-08-22] MEDS: Zoledronic Acid 5 MG 100 ML 300 MG IV (13:06)
[2022-08-22] MEDS: 0.9% NaCl Peripheral Flush Adult/Peds IV (13:06)
[2022-08-22 13:30] VITALS: BP 110/57; PULSE 103; RESP 16; O2SAT 100
== END 2022-08-22 23:59 | disposition home or self-care (01) ==
LOC: MEDOUTP 12:45
PROVIDERS: PCP Family Medicine; Referring Provider Internal Medicine Endocrinology, Diabetes & Metabolism; Visit Provider Internal Medicine Endocrinology, Diabetes & Metabolism
DX: M81.0 Age-related osteoporosis without current pathological fracture (principal)
CPT/HCPCS: 96372; A4216; J3489

== ENCOUNTER 2023-01-19 12:04 | Inpatient (IN) | payer MEDICARE, SELFPAY ==
[2023-01-19] VITALS (11 sets, daily range): BP systolic 82–104; BP diastolic 59–79; PULSE 99–120; RESP 16–18; TEMP 36.4–37.2; O2SAT 95–100; BMI 24.9; BMI 27.1
--- NOTE | 2023-01-19 12:31 | EKG12_ITS ---
Test Reason : CP Blood Pressure : / mmHG Vent. Rate : 109 BPM Atrial Rate : 109 BPM P-R Int : 142 ms QRS Dur : 082 ms QT Int : 346 ms P-R-T Axes : 012 -31 066 degrees QTc Int : 465 ms Sinus tachycardia Left axis deviation Abnormal ECG Confirmed by RAGHAV MURRIETA, KECIA ([id number]), story editor ERNA ALMARAZ ([id number]) on 01/21/2023 12:18:54 PM Referred By: Confirmed By:KECIA AVILEZ MD
--- NOTE | 2023-01-19 12:32 | CT_ITS ---
STUDY: CTA CHEST REASON FOR EXAM: Female, 82 years old. Chest pain, SOB, Tachycardia RADIATION DOSAGE (If Supplied By Facility): CTDIvol = ( 9.12 ) mGy, DLP = ( 264.68 ) mGycm TECHNIQUE: The examination was performed with the intravenous administration of IV 100mL Isovue-370. Post-processing of the angiographic images was performed, with multiplanar reformation and 3D reconstruction. Individualized dose optimization techniques were used for this CT. COMPARISON: None. FINDINGS: Normal enhancement of the main pulmonary artery and right and left pulmonary arteries. Normal enhancement of the bilateral peripheral pulmonary arteries. There is no demonstrated pulmonary embolism. There is atherosclerotic calcification of the aortic arch with tortuosity. There is no demonstrated aortic dissection. Normal heart and pericardium. No coronary artery calcification is seen. Normal mediastinum. Normal hilar regions. Normal visualized trachea and bronchi. The lungs are well expanded. Minimal degree of bibasilar atelectasis. Normal pleura. Normal chest wall structures. There are degenerative changes of thoracic spine. Normal visualized upper abdomen. CT/CTA Chest W/WO Contrast IMPRESSION: No evidence of palm embolism. Mild degree of increased linear markings at the lung bases suggestive of atelectasis. Electronically Signed: Dillan Patricia MD at 14:16 EDT ,
--- NOTE | 2023-01-19 12:33 | ED.VIS.CHEST ---
HPI History of Present Illness Chief Complaint: Chest Pain Narrative Narrative: 82-year-old female who denies significant past medical history, states that she takes no medications currently, presents with 3 days of chest pain and pressure on the top of her chest into her neck. She states it is worse when she bends over but better when she lies down. She denies any fevers or chills. No cough, no nausea or vomiting or shortness of breath. Of note, she states that she was on a mission trip for 2 weeks in [place] and returned home, and had body aches all over. She thought her chest pain would resolve, but it has not. She denies any leg swelling, no true exacerbating or alleviating factors. [facility] Medical History Alcohol use Arthritis Back problem Bone fracture Cancer Former smoker Gastric reflux History of IBS History of stress test Injury of back Irritable bowel syndrome with constipation Migraine headache Mitral valve prolapse Osteopenia Osteoporosis Post-menopausal Skin cancer Small intestinal bacterial overgrowth Wears glasses Wears hearing aid Home Medications biotin 2,500 mcg capsule 2,500 mcg PO DAILY 12/25/20 [History Last Taken 05/04/22] calcium citrate-vitamin D3 [Citracal + D Maximum] 2 tab PO DAILY 12/25/20 [History Last Taken 05/04/22] multivitamin 1 tab PO DAILY 12/25/20 [History Last Taken 05/04/22] ibuprofen 600 mg tablet 600 mg PO Q8H PRN Pain 04/04/21 [History Last Taken 05/04/22] Lactobacillus acidophilus 10 billion cell capsule (Probiotic) 10,000 mmu cells PO BID 04/22/22 [History Last Taken 05/04/22] acetaminophen 500 mg tablet 1,000 mg PO Q8 #90 tabs 05/06/22 [Rx Last Taken Unknown] zoledronic acid 5 mg/100 mL in mannitol 5 %-water intravenous piggybck 1 ea .Route .once\ #100 mL 07/21/22 [Rx Last Taken Unknown] Allergy/AdvReac Type Severity Reaction Status Date / Time acetaminophen Allergy Mild unknown Verified 01/19/23 12:04 [From Darvocet-N] propoxyphene Allergy Mild unknown Verified 01/19/23 12:04 [From Darvocet-N] Family History Father Cancer Hypercholesterolemia Mother Diabetes Heart disease Osteoporosis Surgical History History of bunionectomy History of knee replacement Hx of section Hx of colonoscopy Status post surgical removal of malignant neoplasm of skin Social History Smoking Status: Former smoker alcohol intake: current alcohol intake frequency: 0-2 drinks per day Alcohol type: wine substance use type: does not use what type of physical activity do you participate in: yoga frequency: 1-2 times per week ROS ROS ED ROS Narrative Constitutional: No fever, no chills. HEENT: No sore throat. No neck pain. No loss of vision. No rhinorrhea. Cardiovascular: Upper chest pain. No palpitations. No pedal edema. Respiratory: No cough, no shortness of breath. Abdominal: No abdominal pain. No nausea. No vomiting. Genitourinary: No dysuria. No hematuria. Musculoskeletal: No myalgias. No arthralgias. Neurologic: No headaches. No dizziness. No lightheadedness. Skin: No rash. No change in color. Psychiatric: No depression. No anxiety. EXAM Physical Exam Narrative Exam Narrative: Afebrile. Vital signs noted. HEENT: Normocephalic. Atraumatic. PERRL, EOMI. Neck soft and supple. No point tenderness or step off. Cardiovascular: Positive tachycardia no murmurs, rubs, or gallops appreciated. Respiratory: No tachypnea. Lungs clear to auscultation bilaterally. Gastrointestinal: Abdomen soft, nontender, with normoactive bowel sounds. No rebound or guarding. Neurological: Awake. Alert. Nonfocal, nonlateralizing. Skin: No rash. Normal color. No pallor. Musculoskeletal: No pedal edema. Full range of motion extremities. Const Vital Signs: 01/19/23 12:05 01/19/23 12:45 01/19/23 13:12 Temperature 97.6 F L Temperature Source Temporal Pulse Rate 120 H 104 H Respiratory Rate 18 Blood Pressure 104/79 82/59 L Blood Pressure Mean 87 66 Pulse Ox 100 97 96 Oxygen Delivery Method Room Air Room Air 01/19/23 14:12 Temperature Temperature Source Pulse Rate 106 H Respiratory Rate Blood Pressure Blood Pressure Mean Pulse Ox 95 Oxygen Delivery Method Heart Score History: Slightly/Non-Suspicious ECG: Normal Age: >/= 65 years Risk Factors: No Risk Factors Score: 2 MDM MDM MDM Narrative Medical decision making narrative: Comprehensive work-up was pursued. Concern is for ACS versus pulmonary embolism given her tachycardia. She did relate history that she was in atrial fibrillation once, and they looked and she had been admitted previously. She is not currently in atrial fibrillation however. EKG was obtained and interpreted by myself independently as sinus tachycardia at 109 bpm without ectopy or acute ST changes. She will be given aspirin. I will obtain a D-dimer. However, I am concerned tomorrow that she will require a CTA regardless of what this D-dimer shows as she has a risk factor for PE because she may have been immobile on her plane ride home. I reviewed her laboratory work and she has a leukocytosis of 18,000, hemoglobin 14.8, hematocrit 45.5, platelet count 279. Her D-dimer was elevated at 3.02, well beyond the age were related correction. She had a sodium low at 134 with CO2 20, BUN elevated at 21 with creatinine 1.05 consistent with mild dehydration. Glucose up appropriately elevated at 142 with a normal anion gap of 12. Initial high-sensitivity troponin is 25. I interpreted her chest x-ray and see atelectasis at the bases, but no pneumonia or pneumothorax explaining her upper chest pain radiating to her left jaw. I am unsure as to what her leukocytosis may be. While her blood pressure reportedly runs low she had an dip in her systolic blood pressure to 82. She is still mentating. She had received a bolus of normal saline. I will add a lactic acid and a urinalysis cath specimen to look for signs of infection for her leukocytosis and possible sepsis. She was also swabbed for COVID and influenza. With her results pending, patient will be signed out to Dr. Harsha Mckenzie who will review the remaining laboratory work and make final disposition. She may require observation for her leukocytosis and hypotension. Currently, patient is in stable condition. History & Record Review Discussion w/independent historian: Patient and Family Additional record(s) reviewed:: Prior ED visit and Prior labs Lab Data Attestation: I reviewed the patient's lab results. Labs: Laboratory Results - last 24 hr 01/19/23 01/19/23 01/19/23 12:40 12:40 12:40 WBC 18.0 H RBC 4.79 Hgb 14.8 Hct 45.5 MCV 95.0 MCH 30.9 MCHC 32.5 RDW Std Deviation 46.1 H RDW Coeff of Eleonora 13.1 Plt Count 279 MPV 9.1 Immature Gran % (Auto) 0.900 Neut % (Auto) 85.5 H Lymph % (Auto) 6.1 L [place] % (Auto) 6.8 Eos % (Auto) 0.4 Baso % (Auto) 0.3 Absolute Neuts (auto) 15.3 H Absolute Lymphs (auto) 1.09 Nucleated RBC % 0 D-Dimer Quant (PE/DVT) 3.02 H* Sodium 134 L Potassium 3.6 Chloride 102 Carbon Dioxide 20.0 L Anion Gap 12 BUN 21 H Creatinine 1.05 H Estim Creat Clear Calc 35.35 Est GFR (MDRD) Af Amer 65 Est GFR (MDRD) Non-Af 54 L BUN/Creatinine Ratio 20.0 Glucose 142 H Calcium 9.2 Total Bilirubin 1.00 AST 67 H ALT 75 H Alkaline Phosphatase 95 Troponin I High Sens 25 Total Protein 7.9 Albumin 2.7 L Globulin 5.2 H Albumin/Globulin Ratio 0.5 L Radiography Diagnostic Testing: Clinical Impression(s) from Imaging Studies Chest CTA 01/19/23 12:32 IMPRESSION: No evidence of palm embolism. Mild degree of increased linear markings at the lung bases suggestive of atelectasis. Electronically Signed: Dillan Patricia MD at 14:16 EDT , Discharge Plan Triage Chief Complaint: Chest Pain ED Provider: Bryson Rogers Dx/Rx/DC Orders Clinical Impression: Leukocytosis, Hyponatremia, Chest pain Prescriptions: No Action multivitamin Tablet 1 tab PO DAILY calcium citrate-vitamin D3 [Citracal + D Maximum] 2 tab PO DAILY biotin 2,500 mcg capsule 2,500 mcg PO DAILY ibuprofen 600 mg tablet 600 mg PO Q8H PRN (Reason: Pain) zoledronic immi-jqlitdgd-uirnc 5 mg/100 mL piggyback 1 ea .Route .once\ Qty: 100 0RF Rx Instructions: infuse over 20 minutes Probiotic 10 billion cell Capsule 10,000 mmu cells PO BID acetaminophen 500 mg Tablet 1,000 mg PO Q8 Qty: 90 0RF Primary Care Provider: Azalea Rueda Referrals: Azalea Rueda MD [Primary Care Provider] -
[2023-01-19 12:52] LABS: Absolute Lymphocyte Count 1.09 X10^3/uL (0.83-4.51); Absolute Neutrophil Count 15.3 X10^3/uL (2.0-7.7); Basophil# 0.06 X10^3/uL; Basophil% 0.3 % (0-1); Eosinophil# 0.08 X10^3/uL; Eosinophils% 0.4 % (0-5); Hematocrit 45.5 % (37-47); Hemoglobin 14.8 g/dL (12.0-15.0); Lymphocyte # 1.09 X10^3/ul (0.83-4.51); Lymphocyte % 6.1 % (19-41); Mean Corp Hgb Conc 32.5 g/dL (32-36); Mean Corpuscular Hgb 30.9 pg (27.0-32.0); Mean Platelet Vol. 9.1 fl (6.2-12.0); Monocyte# 1.23 X10^3/uL; Monocyte% 6.8 % (0-10); NRBC Flagged by Analyzer 0 % (0-5); Neutrophil # 15.34 X10^3/uL (2.7-7.7); Neutrophil % 85.5 % (47-70); Platelet Count 279 K/mm3 (150-450); RBC Distribution Width CV 13.1 % (11.6-14.6); RBC Distribution Width SD 46.1 fl (35.1-43.9); Red Blood Count 4.79 M/mm3 (4.2-5.4)
[2023-01-19] MEDS: 0.9% Normal Saline 1,000 ML 1000 ML IV (12:58)
[2023-01-19] MEDS: Aspirin 81 MG TAB.CHEW 324 MG PO (12:58)
[2023-01-19 13:09] LABS: D-Dimer Quantitative (DVT/PE) 3.02 FEU/ug/m (0.27-0.49)
[2023-01-19 13:27] LABS: ALB/GLOB Ratio 0.5 RATIO (0.9-2.4); AST(SGOT) 67 U/L (15-37); Alanine Aminotransfer ALT/SGPT 75 U/L (13-56); Albumin, Serum 2.7 g/dL (3.2-5.0); Alkaline Phosphatase 95 U/L (45-117); Anion Gap 12 (5-15); BUN 21 mg/dL (7-18); Calcium,Total 9.2 mg/dL (8.5-10.1); Chloride 102 mmol/L (98-107); Creatinine, Serum 1.05 mg/dL (0.55-1.02); EST Glomerular Filtration Rate 54 mL/min (>60); Est Glom Filt Rate - Afr Amer 65 mL/min (>60); Estimated Creatinine Clearance 35.35 ml/min; Globulin 5.2 g/dL (2.2-4.2); Glucose 142 mg/dL (74-106); Potassium 3.6 mmol/L (3.5-5.1); Protein, Total 7.9 g/dL (6.4-8.2); Sodium Level 134 mmol/L (136-145); Troponin-I HS (w/2H Reflex) 25 pg/mL (3.0-54.0)
[2023-01-19 14:49] LABS: Reflex Troponin-HS? (from REC) Y
[2023-01-19 14:56] LABS: Color, Urine Yellow (Yellow); Glucose, Dipstick Normal (Normal); Ketone-Dipstick 15 mg/dl (Negative); Leukocyte Esterase-Dipstick 100 /ul (Negative); Nitrite-Dipstick Negative (Negative); Occult Blood-Urine 10 /ul (Negative); Protein-Dipstick 30 mg/dl (Negative); Specific Gravity, Urine 1.015 (1.002-1.030); Urine Bilirubin Dipstick 1 mg/dL (Negative); Urine Clarity Sl. Cloudy (Clear); Urine Urobilinogen 4 mg/dl (Normal)
[2023-01-19 15:03] LABS: Bacteria 1+ /hpf (None Seen); Mucous, Urine 1+ /hpf (<or=2+); Red Blood Cells-Urine 0-5 SEEN /hpf (0-5); Squamous Epithelial Cells - UA 0-5 SEEN /hpf (5-10); White Blood Cells 10-25 SEEN /hpf (0-5)
--- NOTE | 2023-01-19 15:15 | NURSING ---
PCU OLEGHE LEUKOCYTOSIS, UTI, TRANSIENT HYPOTENSION
[2023-01-19] MEDS: 0.9% Normal Saline 1,000 ML 999 ML IV ×2 (15:20→16:42)
[2023-01-19 15:30] LABS: Troponin-I HS 29 pg/mL (3.0-54.0)
[2023-01-19] MEDS: Ceftriaxone 1 GM/50 ML BAG IV (15:30)
[2023-01-19 15:49] LABS: Lactic Acid 2.4 mmol/L (0.4-1.9)
--- NOTE | 2023-01-19 17:15 | PCM.HP.STD ---
HPI - General General Date of Admission: 01/19/23 Date of Service: 01/19/23 Chief Complaint: Generalized aches and pains HPI Narrative REBECCA HINTON, is a 82 F who who recently returned from a missions trip in [place]. Presented to the hospital with a history of generalized aches, pains myalgias chest pain neck pain, intermittent chills and rigors all of which started the day she arrived back to [facility]. She also had a fever to 3 days ago but none since then. Appetite has been poor. Denies any nausea vomiting. Denies any diarrhea. Denies any jaundice. Denies any headache or neck stiffness. Blood pressure noted to be low and patient receiving boluses of crystalloids in the emergency department. She denies any dizziness or lightheadedness. [facility] Medical History Alcohol use Arthritis Back problem Bone fracture Cancer Former smoker Gastric reflux History of IBS History of stress test Injury of back Irritable bowel syndrome with constipation Migraine headache Mitral valve prolapse Osteopenia Osteoporosis Post-menopausal Skin cancer Small intestinal bacterial overgrowth Wears glasses Wears hearing aid Home Medications biotin 2,500 mcg capsule 2,500 mcg PO DAILY 12/25/20 [History Last Taken 01/18/23] calcium citrate-vitamin D3 [Citracal + D Maximum] 2 tab PO DAILY 12/25/20 [History Last Taken 01/18/23] multivitamin 1 tab PO DAILY 12/25/20 [History Last Taken 01/18/23] ibuprofen 600 mg tablet 600 mg PO Q8H PRN Pain 04/04/21 [History Last Taken 01/18/23] Lactobacillus acidophilus 10 billion cell capsule (Probiotic) 10,000 mmu cells PO BID 04/22/22 [History Last Taken 01/18/23] acetaminophen 500 mg tablet 1,000 mg PO Q8 #90 tabs 05/06/22 [Rx Last Taken Unknown] zoledronic acid 5 mg/100 mL in mannitol 5 %-water intravenous piggybck 1 ea .Route .once\ #100 mL 07/21/22 [Rx Last Taken 08/10/22] atovaquone 250 mg-proguanil 100 mg tablet (Malarone) 1 tab PO DAILY . 01/19/23 [History Last Taken 01/18/23] Allergy/AdvReac Type Severity Reaction Status Date / Time acetaminophen Allergy Mild unknown Verified 01/19/23 12:04 [From Darvocet-N] propoxyphene Allergy Mild unknown Verified 01/19/23 12:04 [From Darvocet-N] Family History Father Cancer Hypercholesterolemia Mother Diabetes Heart disease Osteoporosis Surgical History History of bunionectomy History of knee replacement Hx of section Hx of colonoscopy Status post surgical removal of malignant neoplasm of skin Social History Smoking Status: Former smoker alcohol intake: current alcohol intake frequency: 0-2 drinks per day Alcohol type: wine substance use type: does not use what type of physical activity do you participate in: yoga frequency: 1-2 times per week ROS ROS Narrative Denies any shortness of breath or neck stiffness or abdominal pain or nausea or vomiting. All other systems reviewed and essentially negative as above in the body of the history. Vital Signs Vital Signs Vital Signs: 01/19/23 12:05 01/19/23 12:45 01/19/23 13:12 Temperature 36.4 C L Temperature Source Temporal Pulse Rate 120 H 104 H Respiratory Rate 18 Blood Pressure 104/79 82/59 L Blood Pressure Mean 87 66 Blood Pressure Source Blood Pressure Position Blood Pressure Location Pulse Ox 100 97 96 Oxygen Delivery Method Room Air Room Air 01/19/23 14:12 01/19/23 15:20 01/19/23 15:20 Temperature 36.9 C Temperature Source Temporal Pulse Rate 106 H 109 H 109 H Respiratory Rate 16 16 Blood Pressure 84/60 L 84/60 L Blood Pressure Mean 68 68 Blood Pressure Source Blood Pressure Position Blood Pressure Location Pulse Ox 95 96 96 Oxygen Delivery Method Room Air Room Air 01/19/23 16:00 01/19/23 16:46 Temperature 36.7 C Temperature Source Oral Pulse Rate 102 H 100 Respiratory Rate 16 16 Blood Pressure 83/60 L 86/60 L Blood Pressure Mean 67 68 Blood Pressure Source Monitor Blood Pressure Position Semi-Fowlers Blood Pressure Location Right Arm Pulse Ox 97 97 Oxygen Delivery Method Room Air Room Air Weight Weight: 67.4 kg Body Mass Index (BMI) 27.1 Physical Exam Narrative General exam. Only mildly ill-appearing, slightly anxious appearing Neck. Neck is supple HEENT. Oral mucosa slightly dry no pallor or jaundice Lungs. Clear to auscultation Heart. First and second heart sounds are no murmurs Abdomen. Soft and full, obese, nontender, no organomegaly or palpable masses Extremities. 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 Conscious alert and oriented x3. Cranial nerves II to XII grossly intact. Rest of the physical examination essentially normal and noncontributory. Results Lab / Micro Data Result Diagrams: 01/19/23 12:40 01/19/23 12:40 Labs: Laboratory Results - last 24 hr 01/19/23 12:40: Sodium 134 L, Potassium 3.6, Chloride 102, Carbon Dioxide 20.0 L, Anion Gap 12, BUN 21 H, Creatinine 1.05 H, Estim Creat Clear Calc 35.35, Est GFR (MDRD) Af Amer 65, Est GFR (MDRD) Non-Af 54 L, BUN/Creatinine Ratio 20.0, Glucose 142 H, Calcium 9.2, Total Bilirubin 1.00, AST 67 H, ALT 75 H, Alkaline Phosphatase 95, Troponin I High Sens 25, Total Protein 7.9, Albumin 2.7 L, Globulin 5.2 H, Albumin/Globulin Ratio 0.5 L 01/19/23 12:40: WBC 18.0 H, RBC 4.79, Hgb 14.8, Hct 45.5, MCV 95.0, MCH 30.9, MCHC 32.5, RDW Std Deviation 46.1 H, RDW Coeff of Eleonora 13.1, Plt Count 279, MPV 9.1, Immature Gran % (Auto) 0.900, Neut % (Auto) 85.5 H, Lymph % (Auto) 6.1 L, [place] % (Auto) 6.8, Eos % (Auto) 0.4, Baso % (Auto) 0.3, Absolute Neuts (auto) 15.3 H, Absolute Lymphs (auto) 1.09, Nucleated RBC % 0 01/19/23 12:40: D-Dimer Quant (PE/DVT) 3.02 H* 01/19/23 14:40: Urine Color Yellow, Urine Clarity Sl. Cloudy, Urine pH 6.0, Ur Specific [place] 1.015, Urine Protein 30 H, Urine Glucose (UA) Normal, Urine Ketones 15 H, Urine Occult Blood 10 H, Urine Nitrite Negative, Urine Bilirubin 1 H, Urine Urobilinogen 4 H, Ur Leukocyte Esterase 100 H, Urine RBC 0-5 SEEN, Urine WBC 10-25 SEEN, Ur Squamous Epith Cells 0-5 SEEN, Urine Bacteria 1+, Urine Mucus 1+ 01/19/23 14:42: Lactic Acid 2.4 H* 01/19/23 15:03: Troponin I High Sens 29 Micro: Microbiology 01/19/23 14:50 Nasal Secretion SARS-CoV-2 & FLU Antigen (Rapid) - Final Radiology Impression Chest CTA 01/19/23 12:32 IMPRESSION: No evidence of palm embolism. Mild degree of increased linear markings at the lung bases suggestive of atelectasis. Electronically Signed: Dillan Patricia MD at 14:16 EDT , Assessment & Plan Assessment/Plan (1) Sepsis: PLAN: Plan 1. Fever, chills and rigors following a recent admissions trip to [place]. Patient took and was compliant with malaria prophylaxis. We will need to keep malaria or any other infections endemic to [place] in view and as a possibility. Blood film has been ordered for malaria parasites. We will follow-up on blood and urine cultures obtained and start treatment empirically with broad-spectrum IV antibiotics with Rocephin 2 g daily and IV vancomycin for any other possible bacterial infection. Consult infectious disease. Keep on telemetry and monitor closely. Charges/Coding Visit Charges Inpatient E&M: 31779 Init Hosp L3
[2023-01-19] MEDS: Vancomycin IV 1,000 MG/200 ML BAG 200 MG IV (17:53)
--- NOTE | 2023-01-19 18:21 | PCM.RX.CS ---
Consult Pharmacy has been consulted to manage selected antiobiotic: Vancomycin Type of Consult: New start Suspected Infection: Sepsis Prior Doses of Antibiotics Received/Current Regimen: Received 1000mg iv x 1 on 01.19.23. Labs: Sodium 134 mmol/L (136-145) L 01/19/23 12:40 Potassium 3.6 mmol/L (3.5-5.1) 01/19/23 12:40 Chloride 102 mmol/L (98-107) 01/19/23 12:40 Carbon Dioxide 20.0 mmol/L (21.0-32.0) L 01/19/23 12:40 Anion Gap 12 (5-15) 01/19/23 12:40 BUN 21 mg/dL (7-18) H 01/19/23 12:40 Creatinine 1.05 mg/dL (0.55-1.02) H 01/19/23 12:40 Est GFR (MDRD) Af Amer 65 mL/min (>60) 01/19/23 12:40 Est GFR (MDRD) Non-Af 54 mL/min (>60) L 01/19/23 12:40 BUN/Creatinine Ratio 20.0 RATIO (10-20) 01/19/23 12:40 Glucose 142 mg/dL (74-106) H 01/19/23 12:40 Microbiology: Microbiology 01/19/23 14:50 Nasal Secretion SARS-CoV-2 & FLU Antigen (Rapid) - Final Weight used for dosin.4 kg Estimated Creatinine Clearance: 35 ml/min Goal Trough: 10-15 mcg/mL Pharmacy Plan for Drug Dosing: Will begin 1000mg iv q24h per protocol. Trough level has been ordered for before 3rd dose. Pharmacy Service will continue to monitor and adjust dosing as required. Follow-Up Labs: Trough Vancomycin - 01.21.23 @1730 before 1800 dose
[2023-01-19 18:48] LABS: Reflex Lactate? Y
[2023-01-19] MEDS: Acetaminophen 325 MG Tablet 650 MG PO (20:24)
[2023-01-19 20:34] LABS: Lactic Acid 2.5 mmol/L (0.4-1.9)
[2023-01-20] VITALS (8 sets, daily range): BP systolic 93–102; BP diastolic 66–75; PULSE 98–110; RESP 16–18; TEMP 36.6–38.3; O2SAT 94–97
[2023-01-20] MEDS: KCl 20MEQ in D5NS 20 MEQ/1,000 ML IV.SOLN. 100 MEQ IV ×2 (04:40→15:15)
[2023-01-20 06:29] LABS: Absolute Lymphocyte Count 1.31 X10^3/uL (0.83-4.51); Basophil# 0.03 X10^3/uL; Basophil% 0.2 % (0-1); Eosinophil# 0.11 X10^3/uL; Eosinophils% 0.9 % (0-5); Hematocrit 34.7 % (37-47); Hemoglobin 11.6 g/dL (12.0-15.0); Lymphocyte # 1.31 X10^3/ul (0.83-4.51); Lymphocyte % 10.4 % (19-41); Mean Corp Hgb Conc 33.4 g/dL (32-36); Mean Corpuscular Volume 92.8 fL (81-99); Mean Platelet Vol. 9.7 fl (6.2-12.0); Monocyte# 1.02 X10^3/uL; Monocyte% 8.1 % (0-10); NRBC Flagged by Analyzer 0 % (0-5); Neutrophil # 10.03 X10^3/uL (2.7-7.7); Neutrophil % 79.8 % (47-70); Platelet Count 247 K/mm3 (150-450); RBC Distribution Width CV 13.2 % (11.6-14.6); RBC Distribution Width SD 45.1 fl (35.1-43.9); Red Blood Count 3.74 M/mm3 (4.2-5.4); White Blood Count 12.6 K/mm3 (4.4-11.0)
[2023-01-20 07:10] LABS: ALB/GLOB Ratio 0.6 RATIO (0.9-2.4); AST(SGOT) 56 U/L (15-37); Alanine Aminotransfer ALT/SGPT 68 U/L (13-56); Albumin, Serum 2.1 g/dL (3.2-5.0); Alkaline Phosphatase 84 U/L (45-117); Anion Gap 7 (5-15); BUN 14 mg/dL (7-18); BUN/Creat Ratio 20.7 RATIO (10-20); Calcium,Total 7.5 mg/dL (8.5-10.1); Chloride 110 mmol/L (98-107); Creatinine, Serum 0.68 mg/dL (0.55-1.02); EST Glomerular Filtration Rate 89 mL/min (>60); Est Glom Filt Rate - Afr Amer 108 mL/min (>60); Estimated Creatinine Clearance 35.49 ml/min; Globulin 3.8 g/dL (2.2-4.2); Glucose 108 mg/dL (74-106); Potassium 3.7 mmol/L (3.5-5.1); Protein, Total 5.9 g/dL (6.4-8.2); Sodium Level 136 mmol/L (136-145)
[2023-01-20 07:18] LABS: Erythrocyte Sedimentation Rate 58 mm/hr (0-30)
--- NOTE | 2023-01-20 08:01 | PCM.PN.HOSP ---
Reason for Visit Reason for Visit: Diagnoses Sepsis, unspecified organism (01/19/23) Subjective Subjective Patient is a 82-year-old female presented with fever chills and rigors following a recent mission trip to [facility] Objective Data Objective Data Vital Signs: Vital Signs Temp Pulse Resp BP Pulse Ox O2 Del Method 97.9 F 100 17 100/72 97 Room Air 01/20/23 03:39 01/20/23 03:39 01/20/23 04:26 01/20/23 03:39 01/20/23 03:39 01/20/23 04:26 Oxygen Delivery Method Room Air Weight: 67.4 kg Body Mass Index (BMI) 27.1 Intake & Output: Intake and Output for Last 24 Hours 01/18/23 01/19/23 01/20/23 23:59 23:59 23:59 Intake Total 3250 / 3250 Output Total 190 / 190 Balance 3250 / 3060 -190 / -190 Lab / Micro Data Result Diagrams: 01/20/23 05:28 01/20/23 05:28 Labs: Laboratory Results - last 24 hr 01/19/23 12:40: Sodium 134 L, Potassium 3.6, Chloride 102, Carbon Dioxide 20.0 L, Anion Gap 12, BUN 21 H, Creatinine 1.05 H, Estim Creat Clear Calc 35.35, Est GFR (MDRD) Af Amer 65, Est GFR (MDRD) Non-Af 54 L, BUN/Creatinine Ratio 20.0, Glucose 142 H, Calcium 9.2, Total Bilirubin 1.00, AST 67 H, ALT 75 H, Alkaline Phosphatase 95, Troponin I High Sens 25, Total Protein 7.9, Albumin 2.7 L, Globulin 5.2 H, Albumin/Globulin Ratio 0.5 L 01/19/23 12:40: WBC 18.0 H, RBC 4.79, Hgb 14.8, Hct 45.5, MCV 95.0, MCH 30.9, MCHC 32.5, RDW Std Deviation 46.1 H, RDW Coeff of Eleonora 13.1, Plt Count 279, MPV 9.1, Immature Gran % (Auto) 0.900, Neut % (Auto) 85.5 H, Lymph % (Auto) 6.1 L, [place] % (Auto) 6.8, Eos % (Auto) 0.4, Baso % (Auto) 0.3, Absolute Neuts (auto) 15.3 H, Absolute Lymphs (auto) 1.09, Nucleated RBC % 0 01/19/23 12:40: D-Dimer Quant (PE/DVT) 3.02 H* 01/19/23 14:40: Urine Color Yellow, Urine Clarity Sl. Cloudy, Urine pH 6.0, Ur Specific [place] 1.015, Urine Protein 30 H, Urine Glucose (UA) Normal, Urine Ketones 15 H, Urine Occult Blood 10 H, Urine Nitrite Negative, Urine Bilirubin 1 H, Urine Urobilinogen 4 H, Ur Leukocyte Esterase 100 H, Urine RBC 0-5 SEEN, Urine WBC 10-25 SEEN, Ur Squamous Epith Cells 0-5 SEEN, Urine Bacteria 1+, Urine Mucus 1+ 01/19/23 14:42: Lactic Acid 2.4 H* 01/19/23 15:03: Troponin I High Sens 29 01/19/23 17:40: Lactic Acid 2.5 H* 01/20/23 05:28: WBC 12.6 H, RBC 3.74 L, Hgb 11.6 L, Hct 34.7 L, MCV 92.8, MCH 31.0, MCHC 33.4, RDW Std Deviation 45.1 H, RDW Coeff of Eleonora 13.2, Plt Count 247, MPV 9.7, Immature Gran % (Auto) 0.600, Neut % (Auto) 79.8 H, Lymph % (Auto) 10.4 L, [place] % (Auto) 8.1, Eos % (Auto) 0.9, Baso % (Auto) 0.2, Absolute Neuts (auto) 10.0 H, Absolute Lymphs (auto) 1.31, Nucleated RBC % 0, ESR 58 H 01/20/23 05:28: Sodium 136, Potassium 3.7, Chloride 110 H, Carbon Dioxide 19.0 L, Anion Gap 7, BUN 14, Creatinine 0.68, Estim Creat Clear Calc 35.49, Est GFR (MDRD) Af Amer 108, Est GFR (MDRD) Non-Af 89, BUN/Creatinine Ratio 20.7 H, Glucose 108 H, Calcium 7.5 L, Total Bilirubin 0.70, AST 56 H, ALT 68 H, Alkaline Phosphatase 84, C-React Prot Ext Range 248.00 H, Total Protein 5.9 L, Albumin 2.1 L, Globulin 3.8, Albumin/Globulin Ratio 0.6 L Micro: Microbiology 01/19/23 14:50 Nasal Secretion SARS-CoV-2 & FLU Antigen (Rapid) - Final Radiography Diagnostic Testing: Radiology Impression Chest CTA 01/19/23 12:32 IMPRESSION: No evidence of palm embolism. Mild degree of increased linear markings at the lung bases suggestive of atelectasis. Electronically Signed: Dillan Patricia MD at 14:16 EDT , Physical Exam Narrative GENERAL: cooperative HEENT: Atraumatic; normocephalic EYES; Anicteric, Normal Conjunctiva NECK; supple, normal thyroid, RESPIRATORY: Diminished to auscultation CARDIOVASCULAR: Regular S1 S2, GI: soft, normoactive bowel sounds, : No Renal angle tenderness; EXTREMITIES: No edema, no clubbing, MUSCULOSKELETAL: no muscle wasting NEURO: Awake; no lateralizing signs. SKIN: No Rash PSYCH; Flat affect Assessment & Plan Assessment/Plan (1) Sepsis: PLAN: Plan Patient is a 82-year-old female presented with fever chills and rigors following a recent mission trip [facility]. Work-up on admission demonstrated leukocytosis. Patient was also found to have abnormal urinalysis 1. Acute cystitis ? Patient presented with fever chills and rigors. Urinalysis obtained on admission was consistent with UTI with WBC count of 2025 and leukocyte x-rays. Patient started on ceftriaxone cultures sent will await result. 2. Fever ? Attributed to patient's cystitis. Given patient recent mission trip other infectious etiology including malaria work-up being pursued 3. Elevated D-dimer CTA of the chest was negative for pulmonary embolism. Ordered bilateral venous duplex to complete the patient's work-up 4. DVT prophylaxis - On enoxaparin Time spent in the patient's overall evaluation,decision-making process, review of diagnostic data, adjustment of management, discussion with other providers, nursing nursing and ancillary staff involved in patient's care documentation, 50 Minutes Charges/Coding Visit Charges Inpatient E&M: 93170 [place] [id number]
[2023-01-20] MEDS: Enoxaparin 40 MG/0.4 ML Syringe SC (09:58)
--- NOTE | 2023-01-20 09:58 | VDLE_ITS ---
Reason For Study: Elevated d-dimer RIGHT LEFT GSV is normal. GSV is normal. CFV is compressible, spontaneous, phasic, CFV is compressible, spontaneous, phasic, competent and demonstrates normal competent, and demonstrates normal augmentation. augmentation. FV is compressible, spontaneous, phasic, FV is compressible, spontaneous, phasic, competent and demonstrates normal competent and demonstrates normal augmentation. augmentation. POP V is compressible, spontaneous, phasic, POP V is compressible, spontaneous, phasic, competent and demonstrates normal competent and demonstrates normal augmentation. augmentation. T/P Trunk is compressible. T/P Trunk is compressible. PTV is compressible. PTV is compressible. RT PerV is compressible. LT PerV is compressible. Procedure This is a venous duplex using B-mode, color flow and spectral Doppler. Exam performed portable in patient room. A preliminary report was called and/or faxed to [facility]. VL/Venous Duplex US - Joel Extrem Interpretation Summary Deep veins of the bilateral lower extremities are patent and compressible segme ntally. There is no evidence of bilateral lower extremity deep vein thrombosis. The bilateral great saphenous veins appear patent and compressible segmentally. Ordering Physician: Meño Cordova Referring Physician: Azalea Rueda Performed By: Veda Noriega RVT
--- NOTE | 2023-01-20 10:53 | CON.PCM.ID_ITS ---
Assessment & Plan Assessment/Plan (1) Sepsis: PLAN: Suspect viral uri. Bcx pending, wbc improved. Will check full resp viral panel. Malaria was sent. If symptoms do not improve, would need to consider things like dengue, zika, rickettsia, chikungunya, acute hiv, leptospirosis, etc. Will follow, thank you HPI Consult Data Date of Consult: 01/20/23 HPI Narrative Reason for Consultation: myalgias HPI Narrative: REBECCA HINTON, is a 82 F with h/o mitral valve prolapse, IBS, presented to ED 01/19 with 3-5 days diffuse myalgias, mild dry cough, congestion, sore throat, headache. Was on 2 week mission trip [place] [facility], returned on 01/14. Took malarone as prophylaxis as prescribed. Did not drink local water. Some goats present in village but did not interact. Occasionally used bug spray, did not sleep with bed nets, but did not notice any mosquito or tick bites. No sick contacts, no one else in group has gotten sick. Fully covid vaccinated/boosted. Day she got home was tired and achy all over. [place] better by 01/16, but still some aches in chest. That day had some fever, chills, and URI sx started. No change in taste/smell. Had some diarrhea when she got back, but coffee does that to her and she hadn't had any while on the trip. Diarrhea improved. Given ongoing chest discomfort, came to ED, admitted on vanc/ceftriaxone. CT-PE done. Overall feeling basically ok this AM. Full ROS performed and neg except as noted above. [facility] Medical History Alcohol use Arthritis Back problem Bone fracture Cancer Former smoker Gastric reflux History of IBS History of stress test Injury of back Irritable bowel syndrome with constipation Migraine headache Mitral valve prolapse Osteopenia Osteoporosis Post-menopausal Skin cancer Small intestinal bacterial overgrowth Wears glasses Wears hearing aid Home Medications biotin 2,500 mcg capsule 2,500 mcg PO DAILY 12/25/20 [History Last Taken 01/18/23] calcium citrate-vitamin D3 [Citracal + D Maximum] 2 tab PO DAILY 12/25/20 [H istory Last Taken 01/18/23] multivitamin 1 tab PO DAILY 12/25/20 [History Last Taken 01/18/23] ibuprofen 600 mg tablet 600 mg PO Q8H PRN Pain 04/04/21 [History Last Taken 01/18/23] Lactobacillus acidophilus 10 billion cell capsule (Probiotic) 10,000 mmu cells PO BID 04/22/22 [History Last Taken 01/18/23] acetaminophen 500 mg tablet 1,000 mg PO Q8 #90 tabs 05/06/22 [Rx Last Taken Unknown] zoledronic acid 5 mg/100 mL in mannitol 5 %-water intravenous piggybck 1 ea .Route .once\ #100 mL 07/21/22 [Rx Last Taken 08/10/22] atovaquone 250 mg-proguanil 100 mg tablet (Malarone) 1 tab PO DAILY . 01/19/23 [History Last Taken 01/18/23] Allergy/AdvReac Type Severity Reaction Status Date / Time acetaminophen Allergy Mild unknown Verified 01/19/23 12:04 [From Darvocet-N] propoxyphene Allergy Mild unknown Verified 01/19/23 12:04 [From Darvocet-N] Family History Father Cancer Hypercholesterolemia Mother Diabetes Heart disease Osteoporosis Surgical History History of bunionectomy History of knee replacement Hx of section Hx of colonoscopy Status post surgical removal of malignant neoplasm of skin Social History Smoking Status: Former smoker alcohol intake: current alcohol intake frequency: 0-2 drinks per day Alcohol type: wine substance use type: does not use what type of physical activity do you participate in: yoga frequency: 1-2 times per week Physical Exam Const alert, oriented x3 and no apparent distress General Appearance: cooperative HEENT normocephalic and head/scalp atraumatic Eyes PERRL and EOMs intact bilaterally Neck supple and No nodes Resp normal air movement and clear to auscultation bilaterally Cardio regular rate and regular rhythm Heart Sounds: murmur GI soft to palpation, non-tender and non-distended Extremity General Extremity: Negative for edema Skin no rashes or lesions noted Neuro CN's II-XII intact bilaterally Lab / Micro Data Attestation: I reviewed the patient's lab results. Result Diagrams: 01/20/23 05:28 01/20/23 05:28 Labs: Laboratory Results - last 24 hr 01/19/23 12:40: Sodium 134 L, Potassium 3.6, Chloride 102, Carbon Dioxide 20.0 L , Anion Gap 12, BUN 21 H, Creatinine 1.05 H, Estim Creat Clear Calc 35.35, Est GFR (MDRD) Af Amer 65, Est GFR (MDRD) Non-Af 54 L, BUN/Creatinine Ratio 20.0, Glucose 142 H, Calcium 9.2, Total Bilirubin 1.00, AST 67 H, ALT 75 H, Alkaline Phosphatase 95, Troponin I High Sens 25, Total Protein 7.9, Albumin 2.7 L, Globulin 5.2 H, Albumin/Globulin Ratio 0.5 L 01/19/23 12:40: WBC 18.0 H, RBC 4.79, Hgb 14.8, Hct 45.5, MCV 95.0, MCH 30.9, MCHC 32.5, RDW Std Deviation 46.1 H, RDW Coeff of Eleonora 13.1, Plt Count 279, MPV 9.1, Immature Gran % (Auto) 0.900, Neut % (Auto) 85.5 H, Lymph % (Auto) 6.1 L, [place] % (Auto) 6.8, Eos % (Auto) 0.4, Baso % (Auto) 0.3, Absolute Neuts (auto) 15.3 H, Absolute Lymphs (auto) 1.09, Nucleated RBC % 0 01/19/23 12:40: D-Dimer Quant (PE/DVT) 3.02 H* 01/19/23 14:40: Urine Color Yellow, Urine Clarity Sl. Cloudy, Urine pH 6.0, Ur Specific [place] 1.015, Urine Protein 30 H, Urine Glucose (UA) Normal, Urine Ke [place] 15 H, Urine Occult Blood 10 H, Urine Nitrite Negative, Urine Bilirubin 1 H , Urine Urobilinogen 4 H, Ur Leukocyte Esterase 100 H, Urine RBC 0-5 SEEN, Urine WBC 10-25 SEEN, Ur Squamous Epith Cells 0-5 SEEN, Urine Bacteria 1+, Urine Mucus 1+ 01/19/23 14:42: Lactic Acid 2.4 H* 01/19/23 15:03: Troponin I High Sens 29 01/19/23 17:40: Lactic Acid 2.5 H* 01/20/23 05:28: WBC 12.6 H, RBC 3.74 L, Hgb 11.6 L, Hct 34.7 L, MCV 92.8, MCH 31.0, MCHC 33.4, RDW Std Deviation 45.1 H, RDW Coeff of Eleonora 13.2, Plt Count 247, MPV 9.7, Immature Gran % (Auto) 0.600, Neut % (Auto) 79.8 H, Lymph % (Auto) 10.4 L, [place] % (Auto) 8.1, Eos % (Auto) 0.9, Baso % (Auto) 0.2, Absolute Neuts (auto) 10.0 H, Absolute Lymphs (auto) 1.31, Nucleated RBC % 0, ESR 58 H 01/20/23 05:28: Sodium 136, Potassium 3.7, Chloride 110 H, Carbon Dioxide 19.0 L , Anion Gap 7, BUN 14, Creatinine 0.68, Estim Creat Clear Calc 35.49, Est GFR (MDRD) Af Amer 108, Est GFR (MDRD) Non-Af 89, BUN/Creatinine Ratio 20.7 H, Glucose 108 H, Calcium 7.5 L, Total Bilirubin 0.70, AST 56 H, ALT 68 H, Alkaline Phosphatase 84, C-React Prot Ext Range 248.00 H, Total Protein 5.9 L, Albumin 2.1 L, Globulin 3.8, Albumin/Globulin Ratio 0.6 L Micro: Microbiology 01/19/23 14:50 Nasal Secretion SARS-CoV-2 & FLU Antigen (Rapid) - Final Radiology Impression Chest CTA 01/19/23 12:32 IMPRESSION: No evidence of palm embolism. Mild degree of increased linear markings at the lung bases suggestive of atelectasis. Electronically Signed: Dillan Patricia MD at 14:16 EDT ,
--- NOTE | 2023-01-20 11:03 | CASEMGMT ---
Social Work SW let pt know that her POA/LW papers are not on file. Pt states understanding, and will have the documents brought in as able. HUA Max
--- NOTE | 2023-01-20 11:35 | CASEMGMT ---
RN CM Face to Face with patient for initial transition planning/care coordination assessment. RN CM introduced self and role at [facility]. Patient lying in bed, alert and oriented. Patient willing to participate in assessment and is able to answer all questions appropriately. Care providers, pharmacy, and demographics verified. Patient wishes to discharge home, denies need for home health at this time. Patient states she has no further needs or concerns at this time. CM to follow for discharge planning needs that may arise. 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 Transportation: self, DIL DME/HHC: Patient shower chair, grab bars, and walker at home. No previous HHC or SNF. Disposition Plan: Patient to discharge home with family support and follow-up plans in place. Veda HERZOG, RN, CM
[2023-01-20] MEDS: 0.9% Saline Lock 10 ML Syringe IV ×2 (12:44→13:59)
[2023-01-20 14:03] LABS: Malaria Blood Parasite Interp Negative (Negative)
--- NOTE | 2023-01-20 14:23 | CHAPLAIN ---
Type of Pastoral Visit _x__ Initial Visit ___ Follow-up Visit ___ On-call Visit ___ General Patient Visit ___ Spiritual Assessment ___ Family Conference ___ Bereavement ___ Rapid Response ___ Code Blue ___ Other (describe below) Pastoral Care Referral From _x__ Patient ___ Family ___ Nurse ___ Physician ___ Auto Brake Mechanic ___ House Parent ___ Other (describe below) Sacrament/Intervention _x__ Active listening ___ Anointing ___ Sikhism ___ Bereavement ___ Communion ___ Gerri exploration ___ ___ Life review _x__ Prayer ___ Reconciliation ___ Sacrament of Sick ___ Supportive presence ___ Wedding ___ Other (describe below) Pastoral Comments 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
[2023-01-20] MEDS: Acetaminophen 325 MG Tablet 650 MG PO (16:21)
[2023-01-21 03:00] VITALS: BP 102/75; PULSE 105; RESP 17; TEMP 36.6; O2SAT 94
[2023-01-21 05:10] VITALS: BP 105/75; PULSE 105; RESP 17; TEMP 36.6; O2SAT 96
[2023-01-21 06:47] LABS: Absolute Lymphocyte Count 1.36 X10^3/uL (0.83-4.51); Absolute Neutrophil Count 6.9 X10^3/uL (2.0-7.7); Basophil# 0.05 X10^3/uL; Basophil% 0.5 % (0-1); Eosinophil# 0.26 X10^3/uL; Eosinophils% 2.8 % (0-5); Hematocrit 34.7 % (37-47); Hemoglobin 11.5 g/dL (12.0-15.0); Lymphocyte # 1.36 X10^3/ul (0.83-4.51); Lymphocyte % 14.4 % (19-41); Mean Corp Hgb Conc 33.1 g/dL (32-36); Mean Corpuscular Hgb 30.9 pg (27.0-32.0); Mean Corpuscular Volume 93.3 fL (81-99); Mean Platelet Vol. 9.4 fl (6.2-12.0); Monocyte# 0.85 X10^3/uL; NRBC Flagged by Analyzer 0 % (0-5); Neutrophil # 6.85 X10^3/uL (2.7-7.7); Neutrophil % 72.8 % (47-70); Platelet Count 266 K/mm3 (150-450); RBC Distribution Width CV 13.6 % (11.6-14.6); RBC Distribution Width SD 46.5 fl (35.1-43.9); Red Blood Count 3.72 M/mm3 (4.2-5.4); White Blood Count 9.4 K/mm3 (4.4-11.0)
[2023-01-21 07:31] LABS: Anion Gap 5 (5-15); BUN 10 mg/dL (7-18); BUN/Creat Ratio 16.6 RATIO (10-20); Calcium,Total 7.6 mg/dL (8.5-10.1); Chloride 113 mmol/L (98-107); EST Glomerular Filtration Rate 101 mL/min (>60); Est Glom Filt Rate - Afr Amer 123 mL/min (>60); Estimated Creatinine Clearance 35.49 ml/min; Glucose 98 mg/dL (74-106); Magnesium 1.9 mg/dL (1.6-2.6); Phosphorus 1.7 mg/dL (2.5-4.9); Potassium 3.6 mmol/L (3.5-5.1); Sodium Level 139 mmol/L (136-145)
[2023-01-21 07:44] VITALS: RESP 17
--- NOTE | 2023-01-21 07:48 | PCM.PN.HOSP ---
Reason for Visit Reason for Visit: Diagnoses Sepsis, unspecified organism (01/19/23) Subjective Subjective Patient seen improved clinically WBC count trended down. Objective Data Objective Data Vital Signs: Vital Signs Temp Pulse Resp BP Pulse Ox O2 Del Method 97.9 F 105 H 17 105/75 96 Room Air 01/21/23 05:10 01/21/23 05:10 01/21/23 07:44 01/21/23 05:10 01/21/23 05:10 01/21/23 07:44 Oxygen Delivery Method Room Air Weight: 67.4 kg Body Mass Index (BMI) 27.1 Intake & Output: Intake and Output for Last 24 Hours 01/19/23 01/20/23 01/21/23 23:59 23:59 23:59 Intake Total 3250 / 3250 2050.00 / 2050.00 Output Total 190 / 190 Balance 3250 / 3060 1860.00 / 1860.00 Lab / Micro Data Result Diagrams: 01/21/23 06:04 01/21/23 06:04 Labs: Laboratory Results - last 24 hr 01/19/23 16:44: Malaria Smear Interp Negative, Malaria % Parasitism 0.00 01/21/23 06:04: WBC 9.4, RBC 3.72 L, Hgb 11.5 L, Hct 34.7 L, MCV 93.3, MCH 30.9, MCHC 33.1, RDW Std Deviation 46.5 H, RDW Coeff of Eleonora 13.6, Plt Count 266, MPV 9.4, Immature Gran % (Auto) 0.500, Neut % (Auto) 72.8 H, Lymph % (Auto) 14.4 L, Gonzales % (Auto) 9.0, Eos % (Auto) 2.8, Baso % (Auto) 0.5, Absolute Neuts (auto) 6.9, Absolute Lymphs (auto) 1.36, Nucleated RBC % 0 01/21/23 06:04: Sodium 139, Potassium 3.6, Chloride 113 H, Carbon Dioxide 21.0, Anion Gap 5, BUN 10, Creatinine 0.60, Estim Creat Clear Calc 35.49, Est GFR (MDRD) Af Amer 123, Est GFR (MDRD) Non-Af 101, BUN/Creatinine Ratio 16.6, Glucose 98, Calcium 7.6 L, Phosphorus 1.7 L, Magnesium 1.9 Micro: Microbiology 01/19/23 15:29 Blood Culture (Wb) - Anticubital Right Blood Culture - Preliminary No growth in 48 hours. 01/19/23 15:22 Blood Culture (Wb) - Anticubital Left Blood Culture - Preliminary No growth in 48 hours. 01/20/23 11:15 Mucosa - Nasopharyngeal Respiratory Panel (PCR) - Final 01/19/23 14:40 Urine Catheter - Catheter Urine Culture - Preliminary GNR lactose bobbin marker 01/19/23 14:50 Nasal Secretion SARS-CoV-2 & FLU Antigen (Rapid) - Final Radiography Diagnostic Testing: Radiology Impression Venous Doppler Study 01/20/23 09:58 Interpretation Summary Deep veins of the bilateral lower extremities are patent and compressible segmentally. There is no evidence of bilateral lower extremity deep vein thrombosis. The bilateral great saphenous veins appear patent and compressible segmentally. Ordering Physician: Meño Cordova Referring Physician: Azalea Rueda Performed By: Veda Noriega RVT Physical Exam Narrative GENERAL: cooperative HEENT: Atraumatic; normocephalic EYES; Anicteric, Normal Conjunctiva NECK; supple, normal thyroid, RESPIRATORY: Diminished to auscultation CARDIOVASCULAR: Regular S1 S2, GI: soft, normoactive bowel sounds, : No Renal angle tenderness; EXTREMITIES: No edema, no clubbing, MUSCULOSKELETAL: no muscle wasting NEURO: Awake; no lateralizing signs. SKIN: No Rash PSYCH; Flat affect Assessment & Plan Assessment/Plan (1) Sepsis: PLAN: Plan Patient is a 82-year-old female presented with fever chills and rigors following a recent mission trip [place]. Work-up on admission demonstrated leukocytosis. Patient was also found to have abnormal urinalysis 1. Acute cystitis with E. coli ? Patient presented with fever chills and rigors. Urinalysis obtained on admission was consistent with UTI with WBC count of 2025 and leukocyte x-rays. Patient started on ceftriaxone cultures sent will await result. 01/21/2023; urine cultures came back positive for E. coli with no significant growth. Plan will be for patient to be assessed for possible discharge 2. Fever ? Attributed to patient's cystitis. Given patient recent mission trip other infectious etiology including malaria work-up being pursued 3. Elevated D-dimer CTA of the chest was negative for pulmonary embolism. Ordered bilateral venous duplex to complete the patient's work-up ? 01/21/2023 bilateral venous duplex came back negative 4. DVT prophylaxis - On enoxaparin Time spent in the patient's overall evaluation,decision-making process, review of diagnostic data, adjustment of management, discussion with other providers, nursing nursing and ancillary staff involved in patient's care documentation, 35 Minutes Charges/Coding Visit Charges Inpatient E&M: 11015 Subs Hosp L2
[2023-01-21 08:52] LABS: Malaria QC Review PASSED
[2023-01-21] MEDS: 0.9% Saline Lock 10 ML Syringe IV (09:44)
[2023-01-21] MEDS: Enoxaparin 40 MG/0.4 ML Syringe SC (09:45)
[2023-01-21 10:00] VITALS: BP 101/66; PULSE 99; RESP 18; TEMP 36.8; O2SAT 97
--- NOTE | 2023-01-21 13:39 | PCM.DC.SUM ---
Providers Date of Admission: 01/19/23 Date of Discharge: 01/21/23 Primary Care Physician: Dr. Azalea Rueda MD Consultations 01/19/23 16:13 Consult: Infectious Disease Routine Consulting Provider: Jesus Waddell Reason for Consult: fever, recent travel to [place] EMERGENT Consult: No MD Notified: Yes Date Notified: 01/19/23 Time Notified: 16:16 Method of Notification: Answering Service Reason For Visit: LEUKOCYTOSIS, UTI, TRANSIENT HYPOTENSION Diagnosis Discharge Diagnosis (1) Sepsis: Status: Acute Code(s): A41.9 - Sepsis, unspecified organism Plan Patient is a 82-year-old female presented with fever chills and rigors following a recent mission trip [facility]. Work-up on admission demonstrated leukocytosis. Patient was also found to have abnormal urinalysis 1. Acute cystitis with E. coli ? Patient presented with fever chills and rigors. Urinalysis obtained on admission was consistent with UTI with WBC count of 2025 and leukocyte x-rays. Patient started on ceftriaxone cultures sent will await result. 01/21/2023; urine cultures came back positive for E. coli with no significant growth. Plan will be for patient to be assessed for possible discharge 2. Fever ? Attributed to patient's cystitis. Given patient recent mission trip other infectious etiology including malaria work-up being pursued 3. Elevated D-dimer CTA of the chest was negative for pulmonary embolism. Ordered bilateral venous duplex to complete the patient's work-up ? 01/21/2023 bilateral venous duplex came back negative 4. DVT prophylaxis - On enoxaparin Time spent in the patient's overall evaluation,decision-making process, review of diagnostic data, adjustment of management, discussion with other providers, nursing nursing and ancillary staff involved in patient's care documentation, 35 Minutes Medications at Discharge Home Medications biotin 2,500 mcg capsule 2,500 mcg PO DAILY 12/25/20 calcium citrate-vitamin D3 [Citracal + D Maximum] 2 tab PO DAILY 12/25/20 multivitamin 1 tab PO DAILY 12/25/20 ibuprofen 600 mg tablet 600 mg PO Q8H PRN Pain 04/04/21 Lactobacillus acidophilus 10 billion cell capsule (Probiotic) 10,000 mmu cells PO BID 04/22/22 acetaminophen 500 mg tablet 1,000 mg PO Q8 #90 tabs 05/06/22 zoledronic acid 5 mg/100 mL in mannitol 5 %-water intravenous piggybck 1 ea .Route .once\ #100 mL 07/21/22 atovaquone 250 mg-proguanil 100 mg tablet (Malarone) 1 tab PO DAILY . 01/19/23 Hospital Course Summary of Care Provided Minutes Spent on Discharge: 35 Physical Exam Narrative GENERAL: cooperative HEENT: Atraumatic; normocephalic EYES; Anicteric, Normal Conjunctiva NECK; supple, normal thyroid, RESPIRATORY: Diminished to auscultation CARDIOVASCULAR: Regular S1 S2, GI: soft, normoactive bowel sounds, : No Renal angle tenderness; EXTREMITIES: No edema, no clubbing, MUSCULOSKELETAL: no muscle wasting NEURO: Awake; no lateralizing signs. SKIN: No Rash PSYCH; Flat affect Weight / BMI Weight Weight: 67.4 kg Body Mass Index (BMI) 27.1 ABG / Lab / Microbiology Data Result Diagrams: 01/21/23 06:04 01/21/23 06:04 Laboratory: Laboratory Results - last 24 hr 01/19/23 16:44: Malaria Smear Interp Negative, Malaria % Parasitism 0.00 01/21/23 06:04: WBC 9.4, RBC 3.72 L, Hgb 11.5 L, Hct 34.7 L, MCV 93.3, MCH 30.9, MCHC 33.1, RDW Std Deviation 46.5 H, RDW Coeff of Eleonora 13.6, Plt Count 266, MPV 9.4, Immature Gran % (Auto) 0.500, Neut % (Auto) 72.8 H, Lymph % (Auto) 14.4 L, Edwards % (Auto) 9.0, Eos % (Auto) 2.8, Baso % (Auto) 0.5, Absolute Neuts (auto) 6.9, Absolute Lymphs (auto) 1.36, Nucleated RBC % 0 01/21/23 06:04: Sodium 139, Potassium 3.6, Chloride 113 H, Carbon Dioxide 21.0, Anion Gap 5, BUN 10, Creatinine 0.60, Estim Creat Clear Calc 35.49, Est GFR (MDRD) Af Amer 123, Est GFR (MDRD) Non-Af 101, BUN/Creatinine Ratio 16.6, Glucose 98, Calcium 7.6 L, Phosphorus 1.7 L, Magnesium 1.9 Microbiology: Microbiology 01/19/23 14:40 Urine Catheter - Catheter Urine Culture - Final Escherichia coli 01/19/23 15:29 Blood Culture (Wb) - Anticubital Right Blood Culture - Preliminary No growth in 48 hours. 01/19/23 15:22 Blood Culture (Wb) - Anticubital Left Blood Culture - Preliminary No growth in 48 hours. 01/20/23 11:15 Mucosa - Nasopharyngeal Respiratory Panel (PCR) - Final 01/19/23 14:50 Nasal Secretion SARS-CoV-2 & FLU Antigen (Rapid) - Final D/C Instructions Discharge Diet: No restrictions Discharge Activity: Return to Normal Activity Call your doctor if you observe: Fever of 101 or Higher, Shortness of breath, Fainting spells and Chest pain Meaningful Use Info Meaningful Use Diagnoses (Choose all that apply): None applicable Discharge Plan Admission Admit Date/Time: 01/19/23 16:16 Attending Provider: Meño Cordova Primary Care Provider: Azalea Rueda Consulting Providers: Jesus Waddell ; Kilo Boyer Discharge Orders/Prescriptions Prescriptions: Continued multivitamin Tablet 1 tab PO DAILY calcium citrate-vitamin D3 [Citracal + D Maximum] 2 tab PO DAILY biotin 2,500 mcg capsule 2,500 mcg PO DAILY ibuprofen 600 mg tablet 600 mg PO Q8H PRN (Reason: Pain) zoledronic npto-[id number]-qbbjl 5 mg/100 mL piggyback 1 ea .Route .once\ Qty: 100 0RF Rx Instructions: infuse over 20 minutes Probiotic 10 billion cell Capsule 10,000 mmu cells PO BID acetaminophen 500 mg Tablet 1,000 mg PO Q8 Qty: 90 0RF atovaquone-proguanil [Malarone] 250-100 mg Tablet 1 tab PO DAILY Rx Instructions: must administer with food, preferably a high-fat meal Referrals / Follow Up: Azalea Rueda MD [Primary Care Provider] - In 1 Week Disposition Disposition (needs filled in before D/C Order can be placed): Home, Self Care Charges/Coding Visit Charges Inpatient E&M: 14659 Disch Hosp >30min
--- NOTE | 2023-01-21 13:46 | PCM.PN.ID ---
Physical Exam Narrative Feeling better, chest discomfort is gone, no fever Const alert and no apparent distress General Appearance: cooperative Resp normal air movement and clear to auscultation bilaterally Cardio regular rate and regular rhythm GI soft to palpation, non-tender and non-distended Skin no rashes or lesions noted ID ID: Route of nutrition/ use of supplements: [] Nutritional Intake: [] IV Site: [] Valdez Catheter: [] Assessment & Plan Assessment/Plan (1) Sepsis: PLAN: Suspect viral uri. Bcx neg so far, wbc improved. Was neg on full resp viral panel. Malaria was sent. Doubt uti given lack of symptoms and very small growth on ucx. ok for home off of abx. Will follow as needed, d/w Dr. Cordova
--- NOTE | 2023-01-21 14:15 | PHA.DC.MR ---
Pharmacy Service has performed discharge medication reconciliation for this patient. The patient's discharge medication list was reviewed for discrepancies and discrepancies were resolved. Home Medications biotin 2,500 mcg capsule 2,500 mcg PO DAILY supplement 12/25/20 calcium citrate-vitamin D3 [Citracal + D Maximum] 2 tab PO DAILY supplement 12/25/20 multivitamin 1 tab PO DAILY vitamin 12/25/20 ibuprofen 600 mg tablet 600 mg PO Q8H PRN Pain 04/04/21 Lactobacillus acidophilus 10 billion cell capsule (Probiotic) 10,000 mmu cells PO BID supplement 04/22/22 acetaminophen 500 mg tablet 1,000 mg PO Q8 #90 tabs 05/06/22 zoledronic acid 5 mg/100 mL in mannitol 5 %-water intravenous piggybck 1 ea .Route .once\ #100 mL 07/21/22 atovaquone 250 mg-proguanil 100 mg tablet (Malarone) 1 tab PO DAILY . 01/19/23
== END 2023-01-21 16:19 | disposition home or self-care (01) | DRG 690 ==
LOC: ED 13:15 → PCU 15:32
PROVIDERS: Admitting Provider Internal Medicine; Emergency Provider Emergency Medicine; PCP Family Medicine; Visit Provider Internal Medicine
DX: N30.00 Acute cystitis without hematuria (principal); B96.20 Unspecified Escherichia coli [E. coli] as the cause of diseases classified elsewhere; I48.91 Unspecified atrial fibrillation; J06.9 Acute upper respiratory infection, unspecified; Z87.891 Personal history of nicotine dependence; R79.1 Abnormal coagulation profile
CPT/HCPCS: 36415; 71275; 80048; 80053; 81001; 83605; 83735; 84100; 84484; 85025; 85379; 85652; 86140; 87040; 87077; 87086; 87088; 87186; 87207; 87428; 87633; 93005; 93970; 97802; 99285; J7030; P9612; Q9967; A4216; J0696

== ENCOUNTER 2023-02-24 09:30 | Outpatient (RCR) | payer MEDICARE, SELFPAY ==
--- NOTE | 2023-02-05 11:52 | HP.PTEVAL_ITS ---
Patient's Visit Information Visit Information Visit Information: REBECCA HINTON is a 82 year old F referred to Physical Therapy by Dr. Azalea Rueda MD with a diagnosis of GAIT INSTABLITY. Date of Evaluation: 02/05/23 Physical Therapist: Santosh Tineo PT, Cert MDT, OCS Visit Plan Frequency: 2x /Week Duration: 4 Weeks Plan: FOCUS ON GYM PROGRAM PT INTERVETIONS PROGRESSIVE HIGH LEVEL BALANCE,ENDURANCE PROGRAM ,BLE STRENGTHENING AND FUNCTIONAL STRENGTHNEING Subjective Subjective: This 82 y/o female presents to physical therapy with gait instability. Patient return from Vacation in [place] and developed weakness when return had UTI and was hospitalized . Patient seen DR felt weak and unsteady. Patient has no pain. Patient right shoulder pain. Patient has no falls. Patient denies paresthesia/tingling. Patient has had no Mechanical fall. Patient goals to get stronger. Patient condition affects QOL and function. Patient had TKR 11 months ago SOCAIL: VOCATION: RTIRED Objective Objective: POSTURE: mild forward posture GAIT: reciprocal pattern PALAPTION: unremarkable FLEXABLILITY: hamstrings WFL MMT: quads/hamstrings 4/5 ,( peak force) hip flexion 14.4 right ,left 14.9,hip abduction 12.8 right ,left 11.1 Balance/Special Test Scores Functional Gait Assessment Score: 24 % Disability: 20.0000 CATSIB Score (Max score 120 seconds): 116 Lower Extremity Functional Score: 47 Goals Goal 1:: I with HEP and strengthening Goal Time Frame: 2-4 Weeks Goal 2:: Patient to demonstrate 75% with improvement with decrease pain and improved function Goal Time Frame: 2-4 Weeks Goal 3:: Patient to improve peak force of hip by 10 # to improve gait Goal Time Frame: 2-4 Weeks Goal 4:: Patient to improve functional gait assessment score by 5-10 points to improve gait and balance Goal Time Frame: 2-4 Weeks Goal 5:: Patient to improve LFES score by 5 points or > to improve QOL and function. Goal Time Frame: 4-6 Weeks Rehabilitation Potential Physical Therapy Diagnosis: This patient has impairments with mild unsteady gait and weakness thus benefit from PT Rehabilitation Potential: Good Anticipated Interventions Patient/Client Instruction: Educate patient on: Condition and Plan of Care For the Purpose of:: To improve muscle performance and motor function, To increase tolerance to activity/condition/position, To improve ability of physical actions for home/community/work/leisure, To improve gait and locomotor functions, To decrease soft tissue restriction, To increase flexibility/ROM, To improve endurance and To improve balance Therapeutic Exercise to Include: Strength training, Power training, Endurance training, Balance training, Postural training and Flexibilty training For the Purpose of:: To improve muscle performance and motor function, To increase tolerance to activity/condition/position, To improve ability of physical actions for home/community/work/leisure, To improve gait and locomotor functions, To increase flexibility/ROM, To improve endurance and To improve balance Text: Thank you for the opportunity to evaluate your patient. For Medicare and Medicare HMO plans, please review the plan of care and approve it. It will need to be FAXED BACK to us at [phone] for Medicare purposes. For Medicare only, by signing this I certify the plan of care. Please let me know if there are questions or concerns regarding this plan of care. Physician Signature: __Date:
--- NOTE | 2023-02-24 09:51 | HP.PTDCSUM ---
Discharge Summary D/C summary: It has been my pleasure to treat REBECCA HINTON referred by Dr. Azalea Rueda MD, with the diagnosis of GAIT INSTABLITY for a total of 4 visit(s). Discharge Date: 02/24/23 Please see the following information for a summary of their discharge status. Subjective Subjective: Ready for d/c Overall Improvement % Improvement: 90 Objective Objective/Function: Objective: POSTURE: mild forward posture GAIT: reciprocal pattern PALAPTION: unremarkable FLEXABLILITY: hamstrings WFL MMT: quads/hamstrings 4/5 ,( peak force) hip flexion 20.4 right ,left 20.9,hip abduction 19.8 right ,left 19.1 Goals Goal 1:: I with HEP and strengthening Goal Progress: Goal Met Goal 2:: Patient to demonstrate 75% with improvement with decrease pain and improved function Goal Progress: Goal Met Goal 3:: Patient to improve peak force of hip by 10 # to improve gait Goal Progress: Goal Met Goal 4:: Patient to improve functional gait assessment score by 5-10 points to improve gait and balance Goal Progress: Goal Met Goal 5:: Patient to improve LFES score by 5 points or > to improve QOL and function. Goal Progress: Goal Met Plan Plan: D/C D/C Information Discharge Comments: HEP AND GYM d/c sentence: If there are questions or concerns regarding this patient's physical therapy, please feel free to call me at [phone]. Thank you for the referral of this patient. Sincerely, Santosh Tineo, PT, Cert MDT, OCS Balance/Gait/Functional tests Balance/Special Test Scores Functional Gait Assessment Score: 24 % Disability: 20.0000 CATSIB Score (Max score 120 seconds): 116 Oswestry Low Back Score: 2 Lower Extremity Functional Score: 47
== END 2023-02-24 19:00 | disposition home or self-care (01) ==
LOC: PT 09:30
PROVIDERS: PCP Family Medicine; Referring Provider Family Medicine; Visit Provider Family Medicine
DX: R26.81 Unsteadiness on feet (principal)
CPT/HCPCS: 97110; 97162

== ENCOUNTER → 2023-08-06 | Outpatient (CLI) | payer MEDICARE, SELFPAY ==
[2023-08-06 12:02] LABS: Vitamin D,25 Hydroxy 41.6 ng/mL
[2023-08-06 12:08] LABS: ALB/GLOB Ratio 0.9 RATIO (0.9-2.4); AST(SGOT) 17 U/L (15-37); Alanine Aminotransfer ALT/SGPT 18 U/L (13-56); Albumin, Serum 3.7 g/dL (3.2-5.0); Alkaline Phosphatase 54 U/L (45-117); Anion Gap 8 (5-15); BUN 15 mg/dL (7-18); Chloride 106 mmol/L (98-107); Creatinine, Serum 0.79 mg/dL (0.55-1.02); EST Glomerular Filtration Rate 74 mL/min (>60); Est Glom Filt Rate - Afr Amer 90 mL/min (>60); Glucose 102 mg/dL (74-106); Potassium 3.9 mmol/L (3.5-5.1); Protein, Total 7.7 g/dL (6.4-8.2); Sodium Level 141 mmol/L (136-145); Thyroid Stim Hormone (TSH) 0.93 uIU/mL (0.358-3.74)
== END | disposition home or self-care (01) ==
LOC: PAVLAB 11:16
PROVIDERS: PCP Family Medicine; Referring Provider Internal Medicine Endocrinology, Diabetes & Metabolism; Visit Provider Internal Medicine Endocrinology, Diabetes & Metabolism
DX: K58.1 Irritable bowel syndrome with constipation (principal); M81.0 Age-related osteoporosis without current pathological fracture
CPT/HCPCS: 36415; 80053; 82306; 84443

== ENCOUNTER 2023-08-14 12:47 | Outpatient (CLI) | payer MEDICARE, SELFPAY ==
[2023-08-14 12:56] VITALS: BP 126/73; PULSE 105; RESP 16; TEMP 36; O2SAT 96; BMI 26.5
[2023-08-14] MEDS: Zoledronic Acid 5 MG 100 ML 300 MG IV (13:17)
[2023-08-14] MEDS: 0.9% NaCl Peripheral Flush Adult/Peds IV (13:17)
[2023-08-14 13:47] VITALS: BP 108/65; PULSE 90
== END 2023-08-14 12:48 | disposition home or self-care (01) ==
LOC: MEDOUTP 12:48
PROVIDERS: PCP Family Medicine; Referring Provider Internal Medicine Endocrinology, Diabetes & Metabolism; Visit Provider Internal Medicine Endocrinology, Diabetes & Metabolism
DX: M81.0 Age-related osteoporosis without current pathological fracture (principal)
CPT/HCPCS: 96365; A4216; J3489

== ENCOUNTER → 2024-07-22 | Outpatient (CLI) | payer MEDICARE, SELFPAY ==
[2024-07-22 10:19] LABS: AST(SGOT) 15 U/L (15-37); Alanine Aminotransfer ALT/SGPT 21 U/L (13-56); Albumin, Serum 3.6 g/dL (3.2-5.0); Alkaline Phosphatase 51 U/L (45-117); Anion Gap 2 (5-15); BUN 20 mg/dL (7-18); BUN/Creat Ratio 25.5 RATIO (10-20); Calcium,Total 9.1 mg/dL (8.5-10.1); Chloride 108 mmol/L (98-107); Creatinine, Serum 0.78 mg/dL (0.55-1.02); EST Glomerular Filtration Rate 75 mL/min (>60); Est Glom Filt Rate - Afr Amer 90 mL/min (>60); Globulin 3.6 g/dL (2.2-4.2); Glucose 97 mg/dL (74-106); Potassium 4.3 mmol/L (3.5-5.1); Protein, Total 7.2 g/dL (6.4-8.2); Sodium Level 140 mmol/L (136-145)
[2024-07-25 15:23] LABS: Vitamin D,25 Hydroxy 30.7 ng/mL
== END | disposition home or self-care (01) ==
LOC: LAB 09:02
PROVIDERS: PCP Family Medicine; Referring Provider Internal Medicine Endocrinology, Diabetes & Metabolism; Visit Provider Internal Medicine Endocrinology, Diabetes & Metabolism
DX: M81.0 Age-related osteoporosis without current pathological fracture (principal); E55.9 Vitamin D deficiency, unspecified
CPT/HCPCS: 36415; 80053; 82306

== ENCOUNTER 2024-08-19 08:48 | Outpatient (CLI) | payer MEDICARE, SELFPAY ==
[2024-08-19 09:08] VITALS: BP 130/76; PULSE 100; RESP 16; O2SAT 97; BMI 27.8
[2024-08-19] MEDS: Zoledronic Acid 5 MG 100 ML 300 MG IV (09:08)
[2024-08-19 09:57] VITALS: BP 108/67; PULSE 78; RESP 16
[2024-08-19] MEDS: 0.9% NaCl Peripheral Flush Adult/Peds IV (09:57)
[2024-08-19] MEDS: 0.9% Normal Saline (100mL Bag) 100 ML 15 ML IV (09:57)
== END 2024-08-19 23:59 | disposition home or self-care (01) ==
PROVIDERS: PCP Family Medicine; Referring Provider Internal Medicine Endocrinology, Diabetes & Metabolism; Visit Provider Internal Medicine Endocrinology, Diabetes & Metabolism
DX: M81.0 Age-related osteoporosis without current pathological fracture (principal)
CPT/HCPCS: 96365; A4216; J3489

== ENCOUNTER 2024-12-15 12:00 | Outpatient (RCR) | payer MEDICARE, SELFPAY ==
--- NOTE | 2024-11-23 14:46 | HP.PTEVAL ---
Patient's Visit Information Visit Information Visit Information: REBECCA HINTON is a 84 year old F referred to Physical Therapy by OSMAR Gilmore with a diagnosis of L hip pain. Date of Evaluation: 11/23/24 Physical Therapist: Grey Rolle, PT, ATC Visit Plan Frequency: 2x /Week Duration: 3-6 weeks Plan: Postural edu, Core stab ex's, B LE strengthening, UBE, and HEP Subjective Subjective: Pt reports she fell approximately 3 weeks ago. Pt reports she was carrying a crockpot of sloppy joes down her stairs and misjudged the fact that there was another step to negotiate. Pt reports she was able to get up and carry on from there, but then noticed L hip pain 2 days later. Pt reports she did have recent x-rays and an MRI which revealed and old stress fracture in her spine and sprained ligaments in her spine. Pt notes she has had other falls over this year, but they all had a justifiable reason why she fell (IE, tripped over her dog). Pt denies any tingling or numbness in her feet, and notes good sensation on the bottom of her feet. Pt reports sleep difficulty at this time without taking pain meds before sleep. Pt reports she is able to perform all her ADL's and IADL's, but needs more time to perform them. Pt lives in a one story setting. 1/10 pain at rest, 5/10 pain at worst (ascending stairs) Pain L hip: Pain Intensity (Out of 10): 1 Pain Intensity Range: 5 Objective Objective: Neuro: B LE sensation is WNL to light touch. Palpation: Minor pain on the posterior aspect of L hip surrounding L SIJ. No obvious deformity noted at this time ROM: B LE's are equal when compared bilaterally. MMT: R hip flex= 20, abd= 35, add= 49 #F; L hip flex= 13, abd= 34, add= 49 #F TU.27 sec Balance/Special Test Scores Oswestry Low Back Score: 10 Goals Goal 1:: Decrease L hip pain x 50% to aid with sleep Goal Time Frame: 4-6 Weeks Goal 2:: Increase core stability x 1 grade to aid with restoring a more normalized gait pattern. 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 Rehabilitation Potential: Good Anticipated Interventions Patient/Client Instruction: Educate patient on: Condition and Plan of Care For the Purpose of:: To improve self management Therapeutic Exercise to Include: Strength training, Endurance training, Postural training and Dynamic Lumbar Stabilization For the Purpose of:: To decrease pain and To improve muscle performance and motor function Text: Thank you for the opportunity to evaluate your patient. For Medicare and Medicare HMO plans, please review the plan of care and approve it. It will need to be FAXED BACK to us at [phone] for Medicare purposes. For Medicare only, by signing this I certify the plan of care. Please let me know if there are questions or concerns regarding this plan of care. Physician Signature: Date:
--- NOTE | 2024-12-15 12:27 | HP.PTREVAL ---
Re-Evaluation Intro: OSMAR Gilmore, It has been my pleasure to treat REBECCA HINTON over the last 6 visits for L hip pain. Please see the progress note below for an update on the physical therapy plan of care! Subjective Subjective: I feel LIKE i AM ready to be done. Objective Objective/Function: L hip pain 0/10 and no sleep difficulty at this time Pt now ambulates with a normalized gait pattern Pt is I with HEP Plan Plan Plan: Follow up or discharge in one month Balance/Gait/Functional tests Balance/Special Test Scores Oswestry Low Back Score: 5 Goals Goals Goal 1:: Decrease L hip pain x 50% to aid with sleep Goal Time Frame: 4-6 Weeks Goal Progress: Goal Met Goal 2:: Increase core stability x 1 grade to aid with restoring a more normalized gait pattern. Goal Time Frame: 4-6 Weeks Goal Progress: Goal Met Goal 3:: I with HEP Goal Time Frame: 4-6 Weeks Goal Progress: Goal Met Anticipated Interventions Anticipated Interventions Patient/Client Instruction: Educate patient on: Condition and Plan of Care For the Purpose of:: To improve self management Therapeutic Exercise to Include: Strength training, Endurance training, Postural training and Dynamic Lumbar Stabilization For the Purpose of:: To decrease pain and To improve muscle performance and motor function Re-Evaluation Ending Re-evaluation ending: Please do not hesitate to contact me at [phone] by phone or if you have questions or concerns regarding this new plan of care! Sincerely, Grey Rolle, PT, ATC
--- NOTE | 2024-12-15 12:27 | HP.PTREVAL ---
Re-Evaluation Intro: OSMAR Gilmore, It has been my pleasure to treat REBECCA HINTON over the last 6 visits for L hip pain. Please see the progress note below for an update on the physical therapy plan of care! Subjective Subjective: I feel LIKE i AM ready to be done. Objective Objective/Function: L hip pain 0/10 and no sleep difficulty at this time Pt now ambulates with a normalized gait pattern Pt is I with HEP Plan Plan Plan: Follow up or discharge in one month Balance/Gait/Functional tests Balance/Special Test Scores Oswestry Low Back Score: 5 Goals Goals Goal 1:: Decrease L hip pain x 50% to aid with sleep Goal Time Frame: 4-6 Weeks Goal Progress: Goal Met Goal 2:: Increase core stability x 1 grade to aid with restoring a more normalized gait pattern. Goal Time Frame: 4-6 Weeks Goal Progress: Goal Met Goal 3:: I with HEP Goal Time Frame: 4-6 Weeks Goal Progress: Goal Met Anticipated Interventions Anticipated Interventions Patient/Client Instruction: Educate patient on: Condition and Plan of Care For the Purpose of:: To improve self management Therapeutic Exercise to Include: Strength training, Endurance training, Postural training and Dynamic Lumbar Stabilization For the Purpose of:: To decrease pain and To improve muscle performance and motor function Re-Evaluation Ending Re-evaluation ending: Please do not hesitate to contact me at [phone] by phone or if you have questions or concerns regarding this new plan of care! Sincerely, Grey Rolle, PT, ATC
--- NOTE | 2025-02-03 13:53 | HP.PT.NRP ---
Patient Information Patient Information: REBECCA HINTON was seen in my office for initial evaluation on 11/23/24. The following Plan of Care was established for this patient: POC Established Initial Frequency: 2x /Week Initial Duration: 3-6 weeks Anticipated Interventions Patient/Client Instruction: Educate patient on: Condition and Plan of Care For the Purpose of:: To improve self management Therapeutic Exercise to Include: Strength training, Endurance training, Postural training and Dynamic Lumbar Stabilization For the Purpose of:: To decrease pain and To improve muscle performance and motor function Last Seen Last Seen: This patient was last seen in our office . Pertinent comments regarding their Physical therapy will appear below: Pt has not returned for greater than 30 days and is discharged at this time. At this point I will be discontinuing this patient from physical therapy. I would be happy to see this patient again in the future if found appropriate by the physician. Thank you! Grey Rolle, PT, ATC Balance/Gait/Functional tests Balance/Special Test Scores Oswestry Low Back Score: 5
== END 2024-12-15 19:00 | disposition home or self-care (01) ==
LOC: PT 12:00
PROVIDERS: PCP Family Medicine; Referring Provider Physician Assistant; Visit Provider Physician Assistant
DX: S33.5XXD Sprain of ligaments of lumbar spine, subsequent encounter (principal); M51.360 Other intervertebral disc degeneration, lumbar region with discogenic back pain only; M16.12 Unilateral primary osteoarthritis, left hip
CPT/HCPCS: 97110; 97161; 97530